=== PATIENT | male | born 1980 | race African-American/Black ===

== ENCOUNTER 2017-03-20 09:34 | Inpatient (IN) | payer BC, SELFPAY ==
[~2017-03-20 09:34] MED LIST: ISOVUE-370 76%-LOCM 1 ML ONE
[2017-03-20] MEDS ORDERED: Nitroglycerin 0.4 MG TAB (25 Tab Bottle) ONE (09:43)
--- NOTE | 2017-03-20 09:54 | RAD ---
SINGLE VIEW OF CHEST: Date: 03/20/17 COMPARISON: None. HISTORY: Chest pain. FINDINGS: Single view of the chest shows a normal sized cardiomediastinal silhouette. There is no evidence of consolidation, mass, or pleural effusion. The bones are unremarkable. IMPRESSION: No evidence of acute cardiopulmonary disease. POS: [facility]
[2017-03-20 10:01] LABS: #Eosinphils 0.1 thou/uL (0.0-0.7); #Monocytes 0.6 thou/uL (0.11-0.59); #Neutrophils 3.5 thou/uL (1.40-6.50); %Basophils 0.7 % (0.0-1.0); %Lymphocytes 40.4 % (21.0-51.0); %Monocytes 8.7 % (0.0-10.0); Hematocrit 52.1 % (42.0-52.0); Mean Platelet Volume 6.6 fL (7.4-10.4); White Blood Cell (WBC) Count 7.3 thou/uL (4.8-10.8)
[2017-03-20 10:16] LABS: Anion Gap 9 mmol/L (-14-95); Lactate 2.67 mmol/L (0.50-2.20); POC Est. GFR-MDRD-African-Amer Greater than 60 (2-60); POC Estimated GFR-MDRD 57 (2-60); T. Carbon Dioxide 26.5 mmol/L (1.0-85.0); vO2 Saturation-calc 15.1 % (0.0-100.0)
[2017-03-20 10:19] LABS: ALT (SGPT) 34 U/L (8-55); AST (SGOT) 26 U/L (5-34); Alkaline Phosphatase 175 U/L (40-150); Anion Gap 17 mmol/L (10-20); BUN (Urea Nitrogen) 8 mg/dL (8.9-20.6); Bilirubin, Total 0.6 mg/dL (0.2-1.2); CK (CPK) 191 U/L (30-200); Calc. Creatinine Clearance 0 mL/min (70-130); Calcium 8.8 mg/dL (7.8-10.44); Carbon Dioxide 21 mmol/L (22-29); Chloride 103 mmol/L (98-107); Estimated GFR-MDRD 64; Globulin 4.1 g/dL (2.4-3.5); Lipase 25 U/L (8-78)
[2017-03-20 10:26] LABS: PTT 26.8 SEC (22.9-36.1); Prothrombin Time 14.5 SEC (12.0-14.7)
[2017-03-20 10:27] LABS: Troponin I 0.116 ng/mL (< 0.028)
[2017-03-20 10:37] LABS: Neutrophil 44 % (42-75)
[2017-03-20 10:38] LABS: Band 1 % (5-11)
[2017-03-20] MEDS ORDERED: Enoxaparin Sodium 100 MG/ML SYRINGE ONE (11:04)
--- NOTE | 2017-03-20 11:14 | CT ---
CT OF THE BRAIN WITHOUT CONTRAST: Date: 03/20/17 COMPARISON: None. HISTORY: Shortness of breath and chest pain. Headache. Syncope. TECHNIQUE: Multiple contiguous axial images were obtained in a CT of the brain without contrast. FINDINGS: The brain is normal in morphology and attenuation without focal lesions or confluent areas of infarc tion. There is no evidence of hydrocephalus, intracranial hemorrhage, or extra-axial fluid collectio n. The calvarium and overlying soft tissues are unremarkable. The visualized paranasal sinuses and mast oid air cells are well aerated. IMPRESSION: No evidence of acute intracranial abnormality. POS: [facility]
--- NOTE | 2017-03-20 11:41 | CT ---
CT PULMONARY ANGIOGRAM WITH IV CONTRAST AND 3D POSTPROCESSING: Date: 03/20/17 HISTORY: 36-year-old male with syncope, chest pain. FINDINGS: There is good contrast opacification of the pulmonary arterial vasculature with extensive filling de fects in the main pulmonary arteries and their branches bilaterally consistent with pulmonary emboli sm. There is enlargement of the right ventricle and deviation of the interventricular septum towards the left ventricle. No pleural or pericardial effusions are seen. The thoracic aorta is opacified w ithout aneurysm or dissection. No pneumothoraces are noted. No lobar consolidation or lung masses se en. No acute osseous abnormalities are noted. IMPRESSION: Bilateral pulmonary embolism with right ventricular strain. Findings discussed over the telephone with ER physician, Dr. Quentin Patrick, at 1102 hours. CODE CR. POS: [facility]
--- NOTE | 2017-03-20 12:00 | ULT ---
BILATERAL LOWER EXTREMITY VENOUS DOPPLER ULTRASOUND: Date: 03/20/17 HISTORY: Recently diagnosed massive bilateral pulmonary embolism. TECHNIQUE: Hollingsworth scale ultrasound with color flow and spectral Doppler imaging of the deep venous systems of the lower extremities was performed bilaterally. FINDINGS: There is good flow, compression, and augmentation noted in the common femoral, femoral, deep femoral , popliteal, posterior tibial, and greater saphenous veins on either side. IMPRESSION: No evidence of deep venous thrombosis in either lower extremity. POS: [facility]
[2017-03-20 12:02] LABS: Bilirubin Negative (Negative); Blood, Urine Trace (Negative); Glucose, Urine (Dipstick) Negative (Negative); Ketone, Urine Negative (Negative); Nitrite Negative (Negative); Protein, Urine (Dipstick) Trace mg/dL (Neg-Trace); Urobilinogen 0.2 mg/dL (0.2-1.0)
[2017-03-20 12:16] LABS: Bacteria/HPF None Seen HPF (None Seen); Hyaline Casts/LPF NONE SEEN LPF (0-3 Hyaline); RBC/HPF 0-3 HPF (0-3); Squamous Epithelial 0-3 HPF (0-3); WBC/HPF 0-3 HPF (0-3)
[2017-03-20] MEDS ORDERED: Acetaminophen 325 MG TAB PO PRN ×2 (12:48→12:50)
[2017-03-20] MEDS ORDERED: Ondansetron ODT 4 MG TAB PO PRN ×2 (12:48→12:50)
[2017-03-20] MEDS ORDERED: Ondansetron HCl/PF 4 MG/2 ML Vial IVP PRN ×2 (12:48→12:50)
[2017-03-20] MEDS ORDERED: Nitroglycerin 0.4 MG TAB (25 Tab Bottle) PO PRN (12:48)
[2017-03-20] MEDS ORDERED: Milk Of Magnesia 30 ML UDCUP PO PRN (12:50)
[2017-03-20] MEDS ORDERED: Senokot 8.6 MG TAB PO PRN (12:50)
[2017-03-20] MEDS ORDERED: Bisacodyl 10 MG SUPP PR PRN (12:50)
[2017-03-20 12:57] LABS: PTT 31.7 SEC (22.9-36.1)
[2017-03-20] MEDS ORDERED: Sodium Chloride 0.9% 1,000 ML IV SCH (13:00)
[2017-03-20] MEDS: Sodium Chloride 0.9% 1,000 ML IV SCH (13:19)
[2017-03-20 13:32] LABS: Troponin I 0.346 ng/mL (< 0.028)
--- NOTE | 2017-03-20 15:33 | CON ---
DATE OF CONSULTATION: 03/20/2017 CARDIOLOGY CONSULTATION REASON FOR CONSULTATION: Elevated troponins. HISTORY OF PRESENT ILLNESS: Mr. Rojas is a 36-year-old -Swiss gentleman who comes to [facility] for syncope and chest pain. He was at work and has 2 episodes of syncope today. Jonatan albright, EMS was called after the second one. When they got to him, he was diaphoretic, O2 saturation w as at 91%. He was started on oxygen supplementation. Aspirin was given and brought to the hospital for this. In the ER, he had a CT of the chest and was found to have large bilateral pulmonary embo lisms with right ventricular strain. During his initial evaluation, troponins were drawn and they a re elevated, so Cardiology was consulted for this. PAST MEDICAL HISTORY: None. PAST SURGICAL HISTORY: None. SOCIAL HISTORY: Occasional alcohol use, no tobacco or drugs. FAMILY HISTORY: Noncontributory. REVIEW OF SYSTEMS: Twelve point review of systems was done and it is all negative as stated in the history of present illness. PHYSICAL EXAMINATION: VITAL SIGNS: Temperature 99.1, pulse 128, respiratory rate 26, satting 99% on 2 liters, blood press ure 122/88. GENERAL: Awake, alert, oriented x3, in no distress. HEENT: Normocephalic, atraumatic. NECK: Supple. No JVD. LUNGS: Clear to auscultation. CARDIOVASCULAR: S1 and S2, tachycardic in the 120s. ABDOMEN: Soft, positive bowel sounds. EXTREMITIES: Trace edema on the right leg. SKIN: Warm and dry. LABORATORY DATA: Laboratory work was reviewed. Hematology was unremarkable. Coags were reviewed. ABG was reviewed. Chemistries were reviewed. Potassium was 3.3, creatinine was 1.3, troponin was 0.1 and then 0.3. BNP was 225. UA was negative. Cardiolipin IgG, IgA, and IgM are pending and [facility] er hypercoagulable testing is pending. IMAGIN. EKG is reviewed, sinus tachycardia. 2. Echocardiogram showed normal LV systolic function with dilated right ventricle with reduced func tion consistent with his history of recent acute pulmonary embolism. ASSESSMENT AND PLAN: 1. Submassive pulmonary embolus: Agree with full anticoagulation. Would switch to oral therapies now with rather Xarelto or Eliquis. Would anticoagulate for a minimum of 3 months. At this point, the only thing that may be consistent with him getting a blood clot is he states he fell off his hor se about 2 weeks ago and he might remember that the horse fell on his right leg. The leg is really not hurting at all or has not been swelling in the last few days. 2. His elevated troponin is most likely related to his acute pulmonary embolism. No coronary inter vention is planned at this time. 3. Right ventricular dysfunction: Related to pulmonary embolism. Continue PE treatment. Thank you for letting us to participate in the care of your patient. We will follow.
[2017-03-20] MEDS ORDERED: Potassium Chloride 20 MEQ TAB PO SCH (19:30)
--- NOTE | 2017-03-20 19:45 | HP ---
DATE OF ADMISSION: 03/20/2017 PRIMARY CARE PHYSICIAN: Malika. CHIEF COMPLAINT: Syncopal episode. HISTORY OF PRESENT ILLNESS: The patient is a 36-year-old male with no significant past medical history, who was brought in by EMS after an episode of syncope. The patient is currently in severe respiratory distress and not much information is available from the patient. History obtained from the family at the bedside. Over the last two days, the patient has been having shortness of breath on mild- to-moderate exertion. Today morning, the patient had a syncopal episode while he was trying to get out of his car. He lost consciousness for a few seconds after which he was back to normal. He again passed out in front of his car. EMS was called by his coworker. He was extremely diaphoretic along with chest discomfort. The patient received aspirin by EMS. He fell on the back of the head and was complaining of some headache on the backside earlier today. In the emergency room, his initial vital signs showed temperature of 98.2 with pulse rate of 142, blood pressure of 111/87, respiration of 18 with O2 saturation of 100% on 4 liter nasal cannula. He received full dose anticoagulation for submassive pulmonary embolism on the CT. A stat echocardiogram and Doppler have been ordered. PAST MEDICAL HISTORY: Reviewed with the patient and none. PAST SURGICAL HISTORY: Reviewed with the patient and none. ALLERGIES: No known drug allergies. SOCIAL HISTORY: The patient chews tobacco, drinks alcohol socially, no drug use. FAMILY HISTORY: No history of blood clots in his family. Heart disease runs in his family. REVIEW OF SYSTEMS: The following complete review of systems was negative, unless otherwise mentioned in the HPI or below: Constitutional: Weight loss or gain, ability to conduct usual activities. Skin: Rash, itching. Eyes: Double vision, pain. ENT/Mouth: Nose bleeding, neck stiffness, pain, tenderness. Cardiovascular: Palpitations, dyspnea on exertion, orthopnea. Respiratory: Shortness of breath, wheezing, cough, hemoptysis, fever or night sweats. Gastrointestinal: Poor appetite, abdominal pain, heartburn, nausea, vomiting, constipation, or diarrhea. Genitourinary: Urgency, frequency, dysuria, nocturia. Musculoskeletal: Pain, swelling. Neurologic/Psychiatric: Anxiety, depression. Allergy/Immunologic: Skin rash, bleeding tendency. ALLERGIES: No known drug allergies. CURRENT HOME MEDICATIONS: Reviewed with the patient and none. PHYSICAL EXAMINATION: GENERAL: A 36-year-old male in [id number] respiratory distress. HEENT: Head, atraumatic and normocephalic. Sclerae are anicteric. Moist mucous membranes. No oral lesion. NECK: Supple, no JVD, no carotid bruit. LUNGS: Showed scattered rhonchi. There was accessory muscle use. No wheezing or rales appreciated. HEART: S1, S2 present. Regular, tachycardic. No significant rubs, gallops or murmurs appreciated. ABDOMEN: Soft and obese, bowel sounds present. EXTREMITIES: No edema or calf tenderness. SKIN: Warm and dry. LYMPH NODES: No palpable lymph nodes in the neck. PERIPHERAL VASCULAR: Radial pulses palpable bilaterally. MUSCULOSKELETAL: No joint swelling or tenderness. LABORATORY AND X-RAY FINDINGS: 1. CBC showed WBC 7.3 with hemoglobin 16.2 and platelet 267. 2. VBG showed pH 7.31 with pCO2 of 49.6, pO2 of 14.4 with bicarbonate 25. 3. Chemistries showed sodium 138 with potassium 3.2, chloride 103, bicarbonate 21, BUN of 8, and creatinine 1.48. 4. Troponin initially was 0.116. 5. BNP 225. 5. Thrombosis panel has been sent. CT scan of the brain was negative. EKG by my review showed S1, Q3, T3 pattern. 6. CT angiogram of the chest by my review was consistent with extensive bilateral pulmonary embolism. IMPRESSION AND PLAN: 1. Extensive bilateral pulmonary embolism, etiology unclear. The patient denies any recent immobilization travel. Thrombosis panel has been sent. We will continue full dose anticoagulation. We will consult Critical Care. 2. Abnormal cardiac enzymes secondary to extensive bilateral pulmonary embolism. 3. Stat echocardiogram has been ordered. 4. Obesity with a BMI of 37. Lifestyle modification emphasized. 5. Hypokalemia. We will replace. 6. Dehydration with acute kidney injury/hypokalemia. We will monitor renal function on the daily basis. 7. Tobacco dependence. Lifestyle modification emphasized. 8. Family history of heart disease. 9. Right ventricular strain secondary to extensive bilateral pulmonary embolism. Plan of care was discussed with the patient and the family at the bedside. LEVEL OF RISK: High. CONDITION OF THE PATIENT: Critical. [facility]
[2017-03-20] MEDS: Famotidine 20 MG TAB PO SCH (22:30)
[2017-03-20] MEDS: Docusate 100 MG CAP PO SCH (22:30)
[2017-03-20] MEDS: Enoxaparin Sodium 100 MG/ML SYRINGE SC SCH (22:31)
--- NOTE | 2017-03-20 23:47 | CON ---
DATE OF CONSULTATION: 03/20/2017 HISTORY OF PRESENT ILLNESS: Fito Rojas is a 5 feet 6 inches, 229 pounds, BMI of 37, obese, Afr ican-[place] gentleman who apparently was paying his mortgage and apparently fell in the parking lo [employer]. He does not recollect the event. Denies any chest pain, denies any shortness of breath prior to that he states several weeks ago, he had some calf pain on the right side. He is healthy. He does smoke, does not drink, does not use any drugs. Takes no medication. PAST SURGICAL HISTORY: None. CURRENT MEDICATIONS: None. FAMILY HISTORY: Unremarkable. 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 He says he is very active all the time. REVIEW OF SYSTEMS: Otherwise, 10-point negative. PHYSICAL EXAMINATION: VITAL SIGNS: He is tachycardic at 120-130, blood pressure 120/80, respiratory rate 18. GENERAL: He is awake, alert, and responsive. CHEST: Reveals decreased breath sounds without any wheezing. CARDIAC: Sinus tachycardia. ABDOMEN: Soft. LABORATORY AND X-RAY FINDINGS: Chest x-ray was normal. His CT brain was negative. Ultrasound of b oth legs was negative. CT chest angio shows bilateral pulmonary emboli with the right ventricular s train. His lab otherwise shows white count 7000, hemoglobin and hematocrit 16 and 42, platelet count 267. Troponin is slightly elevated. IMPRESSION: 1. Bilateral pulmonary emboli with negative ultrasound of both legs. 2. Status post syncope with negative CT of the brain. 3. No prior medical problems. 4. Obesity, possibly sleep apnea. PLAN: Lovenox 1 mg/kg is initiated. Otherwise, continue hydration. He is going to require long-term anticoagulation at least for a year . Keep him observed in the ICU. We will follow.
[2017-03-21 04:45] LABS: Hematocrit 46.9 % (42.0-52.0)
[2017-03-21 05:03] LABS: Anion Gap 13 mmol/L (10-20); BUN (Urea Nitrogen) 6 mg/dL (8.9-20.6); BUN/Creatinine Ratio 4.92; Calc. Creatinine Clearance 121 mL/min (70-130); Calcium 8.2 mg/dL (7.8-10.44); Carbon Dioxide 23 mmol/L (22-29); Chloride 107 mmol/L (98-107); Estimated GFR-MDRD 80; Magnesium 1.7 mg/dL (1.6-2.6)
[2017-03-21] MEDS: Sodium Chloride 0.9% 1,000 ML IV SCH (08:42)
[2017-03-21] MEDS: Enoxaparin Sodium 100 MG/ML SYRINGE SC SCH ×2 (09:03→21:05)
[2017-03-21] MEDS: Famotidine 20 MG TAB PO SCH ×2 (09:04→21:04)
[2017-03-21] MEDS: Docusate 100 MG CAP PO SCH ×2 (09:05→21:04)
--- NOTE | 2017-03-21 11:01 | PDOC.PN ---
- Subjective Encounter Start Date: 03/21/17 Encounter Start Time: 10:30 Patient seen and examined. No new complaints. No overnight events. Feels better - Objective Resuscitation Status: Resuscitation Status FULL:Full Resuscitation MAR Reviewed: Yes Vital Signs & Weight: Vital Signs (12 hours) Temp Pulse Resp Pulse Ox 03/21/17 08:00 99.4 F 112 H 25 H 97 03/21/17 04:00 99.0 F 03/21/17 00:00 98.6 F Weight Weight 231 lb 11.293 oz Most Recent Monitor Data Heart Rate from ECG 123 NIBP 124/85 NIBP BP-Mean 96 Respiration from ECG 19 SpO2 97 I&O: 03/20/17 03/21/17 03/22/17 06:59 06:59 06:59 Intake Total 2878 300 Output Total 1880 0 Balance 998 300 Result Diagrams: 03/21/17 04:07 03/21/17 04:07 Phys Exam - Physical Examination Constitutional: NAD Respiratory: no wheezing, no rhonchi Cardiovascular: RRR, no rub Gastrointestinal: soft, non-tender, positive bowel sounds Musculoskeletal: no edema Neurological: non-focal, moves all 4 limbs Dx/Plan - Plan IMPRESSION AND PLAN: 1. Extensive bilateral pulmonary embolism. Thrombosis panel has been sent. on Lovenox 2. Acute kidney injury/dehydration. improving 3. Right ventricular strain with abnormal cardiac enzymes secondary to extensive bilateral pulmonary embolism. 4. Obesity with a BMI of 37. Lifestyle modification emphasized. 5. Hypokalemia. corrected 6. Family history of heart disease. 7. Tobacco dependence. PLAN: * Cont Lovenox * Cardio/Pulm following * Change activity to bedrest with bedside com. * Transfer to tele * DC IVF Review of Systems - Review of Systems Gastrointestinal: negative: Nausea, Vomiting, Abdominal Pain, Diarrhea, Constipation, Melena, Hematochezia, Other Genitourinary: negative: Dysuria, Frequency, Incontinence, Hematuria, Retention , Other - Medications/Allergies Allergies/Adverse Reactions: Allergies Allergy/AdvReac Type Severity Reaction Status Date / Time No Known Allergies Allergy Verified 03/20/17 17:24 Medications: Current Medications Acetaminophen (Tylenol) 650 mg PO Q4H PRN PRN Reason: Headache/Fever or Pain Albuterol/Ipratropium (Duoneb) 3 ml NEB [id number] PRN PRN Reason: SOB &/or Wheezing Bisacodyl (Dulcolax) 10 mg MI Q24H PRN PRN Reason: Constipation Docusate Sodium (Colace) 100 mg PO BID [facility] Last Admin: 03/21/17 09:05 Dose: Not Given Enoxaparin Sodium (Lovenox) 100 mg SC 0900,2100 [facility] Last Admin: 03/21/17 09:03 Dose: 100 mg Famotidine (Pepcid) 20 mg PO BID [facility] Last Admin: 03/21/17 09:04 Dose: 20 mg Sodium Chloride (Normal Saline 0.9%) 1,000 mls @ 50 mls/hr IV .Q20H [facility] Last Admin: 03/21/17 08:42 Dose: Not Given Magnesium Hydroxide (Milk Of Magnesium) 30 ml PO DAILYPRN PRN PRN Reason: Constipation Nitroglycerin (Nitrostat) 0.4 mg PO Q5MIN PRN PRN Reason: Chest Pain Ondansetron HCl (Zofran Odt) 4 mg PO Q6H PRN PRN Reason: Nausea/Vomiting Ondansetron HCl (Zofran) 4 mg IVP Q6H PRN PRN Reason: Nausea/Vomiting Senna (Senokot) 2 tab PO HSPRN PRN PRN Reason: Constipation Sodium Chloride (Flush - Normal Saline) 10 ml IVF Q12HR [facility] Last Admin: 03/21/17 09:05 Dose: 10 ml Sodium Chloride (Flush - Normal Saline) 10 ml IVF PRN PRN PRN Reason: Saline Flush
--- NOTE | 2017-03-21 11:50 | PDOC.CTH ---
Cardiology Progress Note - Subjective He feels better. No chest pain, breathing has improved. - Objective Vital Signs Temp Pulse Resp Pulse Ox 03/21/17 08:00 99.4 F 112 H 25 H 97 03/21/17 07:19 96 03/21/17 04:00 99.0 F 03/21/17 00:00 98.6 F Weight 231 lb 11.293 oz 03/20/17 03/21/17 03/22/17 06:59 06:59 06:59 Intake Total 2878 350 Output Total 1880 500 Balance 998 -150 - Physical Examination General/Neuro: alert & oriented x3, NAD Neck: no JVD present Lungs: CTA, unlabored respirations Heart: RRR, other: (Tachycardic) Abdomen: NT/ND Extremities: + edema B (trace) - Telemetry Telemetry Rhythm: S tach HR 120's. - Labs Result Diagrams: 03/21/17 04:07 03/21/17 04:07 Troponin/CKMB CK-MB (CK-2) 1.6 ng/mL (0-6.6) 03/21/17 04:07 Troponin I 0.130 ng/mL (< 0.028) H 03/21/17 04:07 - Assessment/Plan 1. Acute submassive PE 2. Syncope, secondary to PE 3. Acute RV strain secondary to PE. PLAN: - Continue full anticoagulation. may transition to oral at any point now, will defer to pulmonary - May transfer to telemetry floor.
--- NOTE | 2017-03-21 15:13 | PRG ---
DATE OF SERVICE: 03/21/2017 SUBJECTIVE: Bob this morning denies any pain or shortness of breath. PHYSICAL EXAMINATION: VITAL SIGNS: Pulse is 109, blood pressure is 130/80, saturations 96% on room air, respirations 18. CHEST: No wheezing. CARDIAC: Normal S1, S2. No gallops. ABDOMEN: Soft. LABORATORY DATA: Troponin is 0.13, decreased. His echo shows RV and RA dilatation. Surprisingly, his venograms of both legs were negative. IMPRESSION: 1. Pulmonary embolism with significant right ventricular strain with leg edema and deep venous thro mbosis. 2. Obesity. PLAN: Continue PT. Continue Lovenox. He needs at least 1 year of anticoagulation. I will keep kassy russo on Lovenox at least until Thursday and day after switch him over to Eliquis. We will follow.
[2017-03-22 05:43] LABS: Hematocrit 45.3 % (42.0-52.0)
[2017-03-22 05:59] LABS: Anion Gap 10 mmol/L (10-20); BUN (Urea Nitrogen) 6 mg/dL (8.9-20.6); BUN/Creatinine Ratio 4.88; Calc. Creatinine Clearance 121 mL/min (70-130); Calcium 8.6 mg/dL (7.8-10.44); Carbon Dioxide 28 mmol/L (22-29); Chloride 104 mmol/L (98-107); Estimated GFR-MDRD 80; Magnesium 1.7 mg/dL (1.6-2.6)
--- NOTE | 2017-03-22 08:07 | PDOC.PN ---
- Subjective Encounter Start Date: 03/22/17 Encounter Start Time: 07:30 Subjective: No new complaint. -: Feels better. -: On O2 via NC. - Objective Resuscitation Status: Resuscitation Status FULL:Full Resuscitation Vital Signs & Weight: Weight Weight 232 lb Most Recent Monitor Data Heart Rate from ECG 115 NIBP 134/89 NIBP BP-Mean 112 Respiration from ECG 29 SpO2 98 I&O: 03/21/17 03/22/17 03/23/17 06:59 06:59 06:59 Intake Total 2878 2040 Output Total 1880 1650 Balance 998 390 Result Diagrams: 03/22/17 05:08 03/22/17 05:08 Phys Exam - Physical Examination Constitutional: NAD (On O2 via NC.) HEENT: sclera anicteric Neck: no JVD Respiratory: clear to auscultation bilateral Cardiovascular: RRR Gastrointestinal: soft, non-tender, no distention Musculoskeletal: no edema Neurological: moves all 4 limbs Psychiatric: A&O x 3 Dx/Plan (1) Bilateral pulmonary embolism Code(s): I26.99 - OTHER PULMONARY EMBOLISM WITHOUT ACUTE COR PULMONALE Status : Acute Plan: Continue lovenox. To start Eliquis Vs Coumadin. (2) JEOVANY (acute kidney injury) Code(s): N17.9 - ACUTE KIDNEY FAILURE, UNSPECIFIED Status: Acute Plan: Renal function unchanged from yesterday. Comment: f/u chemistry. (3) Tobacco abuse Code(s): Z72.0 - TOBACCO USE Status: Acute Comment: counseled. - Plan -: To initiate oral anticoagulant, Eliquis Vs Coumadin. -: f/u anticardiolipid, protein s...etc. * .
[2017-03-22] MEDS: Docusate 100 MG CAP PO SCH ×2 (08:09→20:26)
[2017-03-22] MEDS: Famotidine 20 MG TAB PO SCH ×2 (08:09→20:27)
[2017-03-22] MEDS: Enoxaparin Sodium 100 MG/ML SYRINGE SC SCH ×2 (08:10→20:28)
--- NOTE | 2017-03-22 15:38 | PDOC.CTH ---
Cardiology Progress Note - Subjective He is doing better every day. No syncope. - Objective Vital Signs Temp Pulse Pulse Pulse Resp BP BP 03/22/17 11:29 98.9 F 118 H 20 03/22/17 10:08 120 H 115 H 143/86 H 139/91 H 03/22/17 08:00 99.6 F 113 H 18 BP Pulse Ox Pulse Ox Pulse Ox 03/22/17 11:29 146/95 H 96 03/22/17 10:08 99 94 L 03/22/17 08:00 96 Weight 232 lb 03/21/17 03/22/17 03/23/17 06:59 06:59 06:59 Intake Total 2878 2040 Output Total 1880 1650 Balance 998 390 - Physical Examination General/Neuro: alert & oriented x3, NAD Neck: no JVD present Lungs: unlabored respirations Heart: RRR, other: (Tachycardic) Abdomen: NT/ND Extremities: other: (no edema.) - Telemetry Telemetry Rhythm: S tach. - Labs Result Diagrams: 03/22/17 05:08 03/22/17 05:08 Troponin/CKMB CK-MB (CK-2) 1.6 ng/mL (0-6.6) 03/21/17 04:07 Troponin I 0.130 ng/mL (< 0.028) H 03/21/17 04:07 - Assessment/Plan 1. Acute submassive PE 2. Syncope, secondary to PE 3. Acute RV strain secondary to PE. PLAN: - Will switch to Xarelto.
--- NOTE | 2017-03-22 17:25 | PRG ---
DATE OF SERVICE: 03/22/2017 SUBJECTIVE: Mr. Rojas is 5 feet 6, BMI 37. No chest pain or shortness of breath. OBJECTIVE: VITAL SIGNS: Sats are 97% on 3 liters, respirations 18, pulse 130, temperature . CHEST: Chest reveals decreased breath sounds, no wheezing. CARDIAC: Normal S1, S2, no gallops. LABORATORY DATA: H\T\H stable, platelet count normal. Creatinine 1.23. IMPRESSION: 1. Massive pulmonary emboli. 2. Negative ultrasound of the leg. Etiology unclear. PLAN: I will continue Lovenox for another 24-48 hours, then switch him over to Eliquis. Anticoagul ation at least for at least a year. Encouraged to lose weight.
[2017-03-23 05:44] LABS: Anion Gap 13 mmol/L (10-20); BUN (Urea Nitrogen) 8 mg/dL (8.9-20.6); BUN/Creatinine Ratio 6.06; Calc. Creatinine Clearance 113 mL/min (70-130); Calcium 8.4 mg/dL (7.8-10.44); Carbon Dioxide 24 mmol/L (22-29); Chloride 104 mmol/L (98-107); Estimated GFR-MDRD 73; Phosphorus 3.1 mg/dL (2.3-4.7)
[2017-03-23 06:30] VITALS: BMI 36.8
[2017-03-23] MEDS: Docusate 100 MG CAP PO SCH (08:27)
[2017-03-23] MEDS: Famotidine 20 MG TAB PO SCH (08:27)
[2017-03-23] MEDS ORDERED: Rivaroxaban 15 MG TAB PO SCH (09:00)
--- NOTE | 2017-03-23 09:26 | PRG ---
DATE OF SERVICE: 03/23/2017 The patient is doing well, has no complaints. PHYSICAL EXAMINATION: VITAL SIGNS: His O2 sat 97% room air, temperature 98.4, pulse 99, respirations 22, blood pressure 1 42/99. HEENT: Unremarkable. NECK: No JVD. CHEST: Clear to auscultation without wheezing. CARDIAC: S1 and S2 regular. ABDOMEN: Soft. EXTREMITIES: No edema. LABORATORY DATA: Hematocrit 46, platelet count 278. Sodium 138, BUN 8, creatinine 1.2, glucose 131 . ASSESSMENT: Pulmonary embolism. PLAN: He is to be anticoagulated with the Xarelto for at least 6 months. I have no issue with him being discharged today. He can follow up with either Dr. Galvez or his primary care doctor.
[2017-03-23] MEDS ORDERED: Potassium Chloride 20 MEQ TAB PO SCH (09:45)
--- NOTE | 2017-03-23 10:02 | PDOC.PN ---
- Subjective Encounter Start Date: 03/23/17 Encounter Start Time: 10:00 Patient seen and examined. No new complaints. No overnight events. feels good and no sob or dizziness. wants to go home. - Objective Resuscitation Status: Resuscitation Status FULL:Full Resuscitation MAR Reviewed: Yes Vital Signs & Weight: Vital Signs (12 hours) Temp Pulse Resp BP Pulse Ox 03/23/17 08:22 98.4 F 99 22 H 142/99 H 97 Weight Weight 228 lb 3.2 oz Most Recent Monitor Data Heart Rate from ECG 115 NIBP 134/89 NIBP BP-Mean 112 Respiration from ECG 29 SpO2 98 I&O: 03/22/17 03/23/17 03/24/17 06:59 06:59 06:59 Intake Total 2040 1330 Output Total 1650 2040 Balance 390 -710 Result Diagrams: 03/23/17 04:37 03/23/17 04:37 Phys Exam - Physical Examination Constitutional: NAD HEENT: sclera anicteric Neck: supple Respiratory: no wheezing, no rales Cardiovascular: RRR Gastrointestinal: soft Musculoskeletal: no edema Neurological: non-focal, moves all 4 limbs Psychiatric: normal affect, A&O x 3 Skin: no rash Dx/Plan (1) Hypokalemia Code(s): E87.6 - HYPOKALEMIA Status: Acute (2) JEOVANY (acute kidney injury) Code(s): N17.9 - ACUTE KIDNEY FAILURE, UNSPECIFIED Status: Acute Comment: f/ u chemistry. (3) Bilateral pulmonary embolism Code(s): I26.99 - OTHER PULMONARY EMBOLISM WITHOUT ACUTE COR PULMONALE Status : Acute - Plan * . DC home today. Xarelto 15 mg po bid for 3 weeks,then 20 mg po daily for 6 months. f/u with pulm and PCP in 1-2 weeks. Replete K today.
[2017-03-23 10:53] LABS: Protein C Activity 95 % (78-152)
[2017-03-23 11:33] VITALS: BP 151/88; TEMP 98.5
--- NOTE | 2017-03-23 13:02 | PDOC.CTH ---
Cardiology Progress Note - Subjective He is doing well. - Objective Vital Signs Temp Pulse Resp BP BP Pulse Ox 03/23/17 11:31 98.5 F 114 H 18 151/88 H 97 03/23/17 08:27 98.4 F 99 22 H 97 03/23/17 08:22 98.4 F 99 22 H 142/99 H 97 Weight 228 lb 3.2 oz 03/22/17 03/23/17 03/24/17 06:59 06:59 06:59 Intake Total 2040 1330 Output Total 1650 2040 Balance 390 -710 - Physical Examination General/Neuro: alert & oriented x3, NAD Neck: no JVD present Lungs: unlabored respirations Heart: RRR Abdomen: NT/ND Extremities: other: (no edema.) - Telemetry Telemetry Rhythm: S tach - Labs Result Diagrams: 03/23/17 04:37 03/23/17 04:37 Troponin/CKMB CK-MB (CK-2) 1.6 ng/mL (0-6.6) 03/21/17 04:07 Troponin I 0.130 ng/mL (< 0.028) H 03/21/17 04:07 - Assessment/Plan 1. Acute submassive PE 2. Syncope, secondary to PE 3. Acute RV strain secondary to PE. PLAN: - On Xarelto. - October discharge home. - Follow up in 1 month in clinic.
--- NOTE | 2017-03-23 14:33 | DIS ---
DISCHARGE DIAGNOSES: 1. Bilateral extensive pulmonary embolus. 2. Acute kidney injury. 3. Hypokalemia. CONSULTATIONS: 1. Dr. Villa from Cardiology. 2. Dr. Harding from Pulmonary Medicine and Dr. Galvez.. HOSPITAL COURSE: This is a 36-year-old -[place] male who was admitted to the hospital with dizziness and syncopal-like episode and was found to have per CT PE protocol extensive bilateral pul monary embolism and he was treated with anticoagulants and is being discharged on Xarelto with close followup. Thrombosis panel has been sent and is pending. His cardiac enzymes were also abnormal and he had a biventricular dilatation. Cardiology was also following and agree with the anticoagulation for now. PROCEDURES: He had an echocardiogram which showed EF of 60-65%, grade I diastolic dysfunction and s everely dilated right ventricle, elevated pulmonary artery pressure at 52. CONDITION ON DISCHARGE: Fair. DISCHARGE MEDICATIONS: Xarelto 15 mg p.o. b.i.d. for 20 more days for a total of 21 days and then 2 0 mg daily for a total of 6 months. DISCHARGE FOLLOWUP: With primary care physician in 1 week and follow up with Dr. Galvez in 1-2 weeks. The patient's blood pressure was slightly elevated here, but will be monitored as outpatient. The p atient was also given a work note. The patient was slightly hypokalemic the day of discharge and po tassium was replaced. Please see H\T\P and progress notes for more details. I did spend more than 35 minutes coordinating the discharge care of this patient.
[2017-03-25 15:24] LABS: Activated Protein C Resistance 2.9 ratio (.)
== END 2017-03-23 12:45 | disposition home or self-care (01) | DRG 176 ==
LOC: ERS 09:34 → CCU 11:10 → 2NO 03-21 13:27
PROVIDERS: ADMIT Internal Medicine; ATTEND Internal Medicine
DX: I26.99 Other pulmonary embolism without acute cor pulmonale (principal); N17.9 Acute kidney failure, unspecified; E86.0 Dehydration; I82.409 Acute embolism and thrombosis of unspecified deep veins of unspecified lower extremity; F17.220 Nicotine dependence, chewing tobacco, uncomplicated; E66.9 Obesity, unspecified; Z68.37 Body mass index [BMI] 37.0-37.9, adult; E87.6 Hypokalemia
CPT/HCPCS: 36415; 70450; 71010; 71275; 80053; 80069; 81003; 81015; 81240; 82330; 82550; 82553; 82803; 83090; 83605; 83690; 83735; 83880; 84484; 85014; 85018; 85025; 85049; 85240; 85300; 85303; 85305; 85307; 85379; 85598; 85610; 85730; 93005; 93306; 93970; 94760; 96360; 96372; 99292; A4216; G8978-GP-CI; G8979-GP-CI; G8980-GP-CI; J1650

== ENCOUNTER 2017-07-16 12:44 | Outpatient (CLI) | payer BC ==
--- NOTE | 2017-07-16 12:56 | RAD ---
TWO VIEW CHEST: History: Dyspnea. FINDINGS: Lungs are clear. Heart and mediastinum unremarkable. Osseous structures are unremarkable. IMPRESSION: No acute finding. POS: [facility]
== END 2017-07-16 12:45 | disposition home or self-care (01) ==
LOC: RAD 12:44
PROVIDERS: ATTEND Internal Medicine Pulmonary Disease
DX: R06.00 Dyspnea, unspecified (principal)
CPT/HCPCS: 71046

== ENCOUNTER 2017-08-05 11:30 | Outpatient (CLI) | payer BC ==
[2017-08-05] MEDS ORDERED: Iopamidol 370 76% 100 ML VIAL ONE (13:13)
== END 2017-08-05 11:31 | disposition home or self-care (01) ==
LOC: BICCT 11:30
PROVIDERS: ATTEND Internal Medicine Pulmonary Disease
DX: Z09 Encounter for follow-up examination after completed treatment for conditions other than malignant neoplasm (principal); Z86.711 Personal history of pulmonary embolism
CPT/HCPCS: 71275

== ENCOUNTER 2020-01-11 09:13 | Inpatient (IN) | payer BC, OTHER ==
[~2020-01-11 09:13] MED LIST changes: +EPINEPHrine 1 MG/10 ML Abboject SYRINGE ONE; -ISOVUE-370 76%-LOCM 1 ML ONE; +Sodium Bicarb 50 MEQ/50 ML Abboject 8.4% SYRINGE ONE
[2020-01-11] MEDS ORDERED: EPINEPHrine 1 MG/ML AMP ONE (09:19)
[2020-01-11] MEDS ORDERED: EPINEPHrine 1 MG/10 ML Abboject SYRINGE ONE (09:19)
[2020-01-11] MEDS ORDERED: Iopamidol-370 76% 500 ML 1 ML ONE (09:30)
[2020-01-11 09:50] LABS: #Basophils 0.1 thou/uL (0.0-0.2); #Eosinphils 0.1 thou/uL (0.0-0.7); #Lymphocytes 1.8 thou/uL (1.20-3.40); #Monocytes 0.5 thou/uL (0.11-0.59); #Neutrophils 4.9 thou/uL (1.40-6.50); %Basophils 1.3 % (0.0-1.0); %Eosinophils 1.3 % (0.0-10.0); %Lymphocytes 23.8 % (21.0-51.0); %Monocytes 6.5 % (0.0-10.0); %Neutrophils 67.1 % (42.0-75.0); Hemoglobin 15.8 g/dL (14.0-18.0); Mean Corpuscular Hemoglobin 26.7 pg (27.0-31.0); Mean Corpuscular Volume 86.1 fL (78.0-98.0); Mean Platelet Volume 8.5 fL (7.4-10.4); Platelet Count 285 thou/uL (130-400); RBC Distribution Width 13.3 % (11.5-14.5); Red Blood Cell (RBC) Count 5.93 mill/uL (4.70-6.10); White Blood Cell (WBC) Count 7.4 thou/uL (4.8-10.8)
[2020-01-11 10:14] LABS: CKMB 2.4 ng/mL (0-6.6)
[2020-01-11 10:40] LABS: ALT (SGPT) 45 U/L (8-55); AST (SGOT) 30 U/L (5-34); Alkaline Phosphatase 141 U/L (40-110); Anion Gap 12 mmol/L (10-20); BUN (Urea Nitrogen) 11 mg/dL (8.9-20.6); Bilirubin, Total 0.3 mg/dL (0.2-1.2); Calc. Creatinine Clearance 0 mL/min (70-130); Carbon Dioxide 23 mmol/L (22-29); Chloride 105 mmol/L (98-107); Estimated GFR-MDRD 86; Glucose 110 mg/dL (70-105); Lipase 32 U/L (8-78); Magnesium 1.9 mg/dL (1.6-2.6); Potassium 3.7 mmol/L (3.5-5.1); Sodium 136 mmol/L (136-145)
--- NOTE | 2020-01-11 10:53 | RAD ---
CHEST 1 VIEW: Date: 01/11/2020 HISTORY: Chest pain. COMPARISON: Chest radiograph from 2017. FINDINGS: Lungs are clear. No pneumothorax or effusion. Cardiac silhouette and mediastinal contours are similar . No acute osseous abnormality. IMPRESSION: No acute intrathoracic abnormality. POS: HOME
[2020-01-11] MEDS ORDERED: Lorazepam 2 MG/ML VIAL ONE ×2 (11:29→11:50)
--- NOTE | 2020-01-11 11:44 | CT ---
CT PULMONARY ANGIOGRAM WITH IV CONTRAST AND 3-D POSTPROCESSING: HISTORY: Chest pain. Exertional dyspnea. Previous history of pulmonary embolism COMPARISON: 08/05/2017 FINDINGS: There is good contrast opacification of the pulmonary arterial vasculature with extensive bilateral f illing defects consistent with pulmonary embolism. There is associated right ventricular strain. The thoracic aorta is well opacified without aneurysm or dissection. No pleural or pericardial effusions are seen. No pneumothoraces, focal areas of consolidation or lung nodules are noted. A small patchy area of randy undglass opacity seen in the right middle lobe. IMPRESSION: Bilateral pulmonary embolism with right ventricular strain. Discussed over the telephone with ER physician Dr. Danny Johnson at 11:40 AM.
[2020-01-11] MEDS ORDERED: Enoxaparin Sodium 60 MG/0.6 ML SYRINGE ONE (11:46)
--- NOTE | 2020-01-11 11:47 | CT ---
CT BRAIN WITHOUT CONTRAST: HISTORY: Seizure COMPARISON: 03/20/2017 FINDINGS: There is contrast from recent IV administration for CT pulmonary angiogram. No evidence of acute infarct, enhancing mass, midline shift or abnormal extra-axial fluid collections is seen. Possibility of hemorrhage cannot be completely excluded on this study. The ventricular size is appropriate and the basilar cisterns are patent. The bony calvarium is intact. The visualized paranasal sinuses and mastoid air cells are well aerated. IMPRESSION: No CT evidence of acute infarct or mass..
[2020-01-11] MEDS ORDERED: Rocuronium Bromide 10 MG/ML (10ML VIAL) ONE (11:56)
[2020-01-11] MEDS ORDERED: Rocuronium Bromide 50 MG/5 ML VIAL ONE (11:57)
[2020-01-11] MEDS ORDERED: Fentanyl 100 MCG/2 ML VIAL ONE (12:21)
[2020-01-11] MEDS ORDERED: Fentanyl 20 mcg/ml (100 ml CADD) IV PRN (12:27)
[2020-01-11 12:56] LABS: Actual Bicarbonate (HCO3a) 13.2 mEq/L (22-28); Analyzer IN Cardio ER; Base Excess (BEa) -17.7 mEq/L (-2.0 to +3.0); CO2 Tension 52.2 mmHg (35.0-45.0); Calcium, Ionized (arterial) 1.08 mmol/L (1.12-1.30); Carboxyhemoglobin (COHb) 0.3 gm% (0.0-3.0); Hemoglobin (Hb) 13.6 g/dL (14.0-18.0); O2 Tension (PaO2), arterial 85.5 mmHg (80.0-100.0); Potassium - ABG Lab 3.24 mmol/L (3.70-5.30)
--- NOTE | 2020-01-11 13:17 | RAD ---
Exam: Chest one view: HISTORY: Post central line placement ET tube COMPARISON: 01/11/2020 FINDINGS: Gastric tube and endotracheal tubes in satisfactory location. No significant acute intrathoracic dise ase. IMPRESSION: Gastric tube and endotracheal tube in satisfactory location. Less than optimal inspiration.
[2020-01-11] MEDS ORDERED: Norepinephrine 8 MG/0.9% NS 250 ML ONE ×2 (13:26→16:19)
[2020-01-11 13:31] LABS: Puncture Site LBA; pH, Arterial 7.02 (7.35-7.45)
[2020-01-11 14:02] LABS: Actual Bicarbonate (HCO3a) 16.5 mEq/L (22-28); Analyzer IN Cardio ER; CO2 Tension 31.4 mmHg (35.0-45.0); Calcium, Ionized (arterial) 1.09 mmol/L (1.12-1.30); Carboxyhemoglobin (COHb) 0.1 gm% (0.0-3.0); Hemoglobin (Hb) 14.5 g/dL (14.0-18.0); O2 Tension (PaO2), arterial 260.4 mmHg (80.0-100.0); Potassium - ABG Lab 3.76 mmol/L (3.70-5.30); pH, Arterial 7.34 (7.35-7.45)
[2020-01-11 14:04] LABS: Puncture Site LRA
[2020-01-11 14:10] LABS: Troponin I 0.583 ng/mL (< 0.028)
[2020-01-11] MEDS ORDERED: Propofol 1,000 MG/100 ML VIAL IV ONE (15:07)
[2020-01-11] MEDS: Propofol 1,000 MG/100 ML VIAL IV PRN ×2 (15:10→18:44)
[2020-01-11] MEDS: Sodium Chloride 0.9% 1,000 ML IV SCH (15:30)
[2020-01-11] MEDS ORDERED: Ventilator Sedation Protocol 1 EACH FS SCH (15:30)
[2020-01-11 15:44] LABS: Actual Bicarbonate (HCO3a) 16.4 mEq/L (22-28); Base Excess (BEa) -13.2 mEq/L (-2.0 to +3.0); Calcium, Ionized (arterial) 1.13 mmol/L (1.12-1.30); Carboxyhemoglobin (COHb) 0.1 gm% (0.0-3.0); Hemoglobin (Hb) 14.2 g/dL (14.0-18.0); O2 Tension (PaO2), arterial 51.9 mmHg (80.0-100.0); Potassium - ABG Lab 3.42 mmol/L (3.70-5.30); pH, Arterial 7.11 (7.35-7.45)
[2020-01-11 15:45] LABS: Puncture Site LRA
[2020-01-11] MEDS ORDERED: Heparin 25,000 units/D5W 500 ML IVPB SCH (15:45)
[2020-01-11] MEDS ORDERED: Heparin 10,000 UNITS/ 10 ML VIAL SLOW IVP SCH (15:45)
[2020-01-11] MEDS ORDERED: Albumin 5% 250 ML ONE (15:54)
--- NOTE | 2020-01-11 16:00 | RAD ---
Chest one view HISTORY: Pulmonary embolus. Chest pain. COMPARISON: 01/11/2020. FINDINGS: Cardiac silhouette is magnified by projection. Pulmonary vasculature accentuated by shallow inspiration. Right hemidiaphragm now more elevated with increased right basilar parenchymal opacity. Endotracheal catheter tip remains at the thoracic inlet. Nasogastric tube in place with proximal sidehole just above the level of the diaphragm. IMPRESSION : Nasogastric tube should probably be advanced approximately 10 cm for better positioning. Developing atelectasis at the right lung base.
[2020-01-11] MEDS ORDERED: Fentanyl BOLUS 250 ML IVPB PRN (16:11)
[2020-01-11] MEDS ORDERED: Morphine 2 MG/ML VIAL SLOW IVP PRN (16:11)
[2020-01-11] MEDS ORDERED: DISCONTINUE PREVIOUS NARCOTIC PAIN MEDICATIONS AND BENZODIAZEPINES FS SCH (16:11)
[2020-01-11] MEDS ORDERED: Lorazepam 2 MG/ML VIAL SLOW IVP PRN (16:11)
[2020-01-11] MEDS ORDERED: fentaNYL Citrate/PF 2,000 MCG in Sodium Chloride 0.9% 60 ML IV SCH (16:11)
[2020-01-11] MEDS ORDERED: Propofol BOLUS 1,000 MG/100 ML VIAL IV PRN (16:11)
[2020-01-11] MEDS ORDERED: Tenecteplase 50 MG - STEMI KIT ONE (16:12)
[2020-01-11 16:15] LABS: Hemoglobin 12.3 g/dL (14.0-18.0); Platelet Count 226 thou/uL (130-400)
[2020-01-11 16:19] LABS: INR-International Normal Ratio 2.1; PTT 68.5 sec (22.9-36.1); Prothrombin Time 23.6 sec (12.0-14.7)
[2020-01-11] MEDS ORDERED: Hydrocortisone Sod Succ/PF 100 mg/2 ml Vial IVP SCH (16:30)
[2020-01-11 16:38] LABS: D-Dimer Test Greater than 20.00 *mcg/mL (0.27-0.43)
[2020-01-11 16:49] LABS: Troponin I 1.833 ng/mL (< 0.028)
[2020-01-11] MEDS ORDERED: cefTRIAXone\\ROCEPHIN 1 GM in Sodium Chloride 0.9% 100 ML IVPB SCH (17:00)
[2020-01-11] MEDS ORDERED: Azithromycin 500 MG in Sodium Chloride 0.9% 250 ML 250 ML IVPB SCH (17:00)
[2020-01-11] MEDS: Dexamethasone 4 MG in Sodium Chloride 0.9% 50 ML IVPB SCH ×2 (17:13→23:03)
--- NOTE | 2020-01-11 17:15 | HP ---
PRIMARY CARE PHYSICIAN: Efrain Garnett MD CHIEF COMPLAINT: Shortness of breath. HISTORY OF PRESENT ILLNESS: This is a 39-year-old male with a history of previous PE, who has not been on his anticoagulation recently, who presented to the emergency room with shortness of breath upon awakening this morning. All history is taken from the chart and from talking to the ER doctor as the patient is currently intubated. The patient was seen in our hospital back in 2017 with a bilateral submassive pulmonary embolism with right heart strain. He was treated with anticoagulation at that time and was discharged on Xarelto. He has followed up with Dr. Galvez in the past. The patient presented to the emergency room complaining of shortness of breath since he woke up in the morning. Also, sharp chest pain in the substernal that worsened with exertion and also exertional shortness of breath. The patient denied any COVID contacts, fever, hemoptysis, or other symptoms. He was noted to be tachycardic in the emergency room, but was initially maintaining his oxygen saturations. The patient went to CT. He was given 1 mg/kg of Lovenox. He was then taken to CT and CT of the chest did show bilateral pulmonary embolism with right ventricular strain. While in the CT scanner, the patient became altered and hypoxic and had a small seizure. A head CT was then conducted, which was negative. The patient was given a half dose of tPA as he had become very tachypneic and hypoxic and was decompensating. He then decompensated rapidly into pulseless electrical activity after arriving back in his ER room and had CPR and was put on with several rounds of epinephrine and vasopressin. The emergency room physician also intubated the patient and placed a left femoral central line. He was given tenecteplase for massive pulmonary embolism, and then he did have return of spontaneous circulation after 10 minutes of CPR. He was put on epinephrine and norepinephrine drips to maintain his blood pressure. The patient was then admitted to the ICU. Dr. Galvez has been consulted and is at the bedside. REVIEW OF SYSTEMS: Unable to obtain secondary to the patient's mental status. PAST MEDICAL HISTORY: Previous pulmonary embolism. PAST SURGICAL HISTORY: None. SOCIAL HISTORY: The patient chews tobacco. Drinks socially. No illicit drug use. He is and lives with his , Conchis Carvalho. FAMILY HISTORY: No history of blood clots in the family. His father did have a myocardial infarction. ALLERGIES: NO KNOWN DRUG ALLERGIES. CURRENT MEDICATIONS: None. PHYSICAL EXAMINATION: VITAL SIGNS: Blood pressure 116/60, pulse 125, respirations on the vent, pulse ox was initially 100%, now is dropped to 80% on 100% iO2 though not with a good waveform on the O2 monitor, temperature not obtained in the emergency room. GENERAL: This is an obese male, intubated on the ventilator with some coughing motions and some movement of upper and lower extremities, though it does not appear coordinated nor intentional. HEENT: Pupils equal, round, and mildly reactive to light. Oropharynx with ET tube in place. HEART: Regular rate and rhythm. No murmurs, rubs, or gallops. LUNGS: Clear to auscultation bilaterally. No wheezes, crackles, or rhonchi. ABDOMEN: Soft, obese, nontender to palpation. Normoactive bowel sounds. No hepatosplenomegaly or other masses. EXTREMITIES: No clubbing, cyanosis, or edema. He does have good peripheral pulses now. SKIN: No rashes or lesions noted. NEUROLOGIC: The patient does not have any focal findings. He is mildly responsive on the vent, but is not able to follow any commands or wake up. LABORATORY DATA: CBC grossly within normal limits. Coagulation profile: D- dimer elevated at 11. Most recent arterial blood gas shows a pH of 7.11, pCO2 of 53, pO2 of 51, and Dr. Galvez is adjusting the vent as needed. Complete metabolic panel is notable for a glucose of 110, alkaline phosphatase of 140. The rest of it was normal. Lipase was negative. Troponin was initially indeterminate at 0.246, however, repeat after the code was 0.5, CK-MB 2.4. Brain natriuretic peptide was negative. His COVID screen was done and just came back positive. Chest x-ray, I did review the chest x-ray done in the emergency room along with the radiologist 's report. It shows a normal cardiac silhouette, clear lung nicholas. No evidence for COVID pneumonia. No other abnormalities. CT angio of the chest and thorax as above in the HPI. CT of the brain as per the HPI. EKG done in the emergency room shows sinus tachycardia with a heart rate of 120 and S1Q3T3 pattern as well as anterior T-wave inversions suspicious for PE. ASSESSMENT: 1. Acute massive pulmonary embolism with cardiac code. The patient is being given the clot buster available in the emergency room urgently, tenecteplase as well as 1 mg/kg of enoxaparin. We will continue full-dose Lovenox and monitor the patient closely in the ICU. 2. Acute hypoxic respiratory failure secondary to #1, currently intubated and Dr. Galvez consulted managing the vent. 3. Pulseless electrical activity arrest secondary to #1, now with spontaneous return of circulation. We will consult Cardiology for assistance. 4. History of previous pulmonary embolism, needs lifelong anticoagulation. 5. Obesity. 6. Elevated troponin secondary to #1. 7. Gastrointestinal prophylaxis, put patient on Pepcid IV. 8. Code status: The patient is a full code. He has listed next of kin are his spouse, Conchis Carvalho and his mother, Maryjo Rojas. Job ID: [id number] MTDD
--- NOTE | 2020-01-11 18:49 | CON ---
DATE OF CONSULTATION: 01/11/2020 REASON FOR CONSULTATION: Massive pulmonary embolism. HISTORY OF PRESENT ILLNESS: Mr. Rojas is a pleasant 39-year-old gentleman, who came to the hospital for shortness of breath. He was evaluated in the ER and was found to have large bilateral pulmonary embolisms. He does have a history of PEs. He had submassive PEs back in 2017. At that point, he was thrown off a horse and he remembers one of the legs being caught under the horse and it was thought that this was the reason for his DVT and subsequent PEs. He was placed on anticoagulation and sent home, he followed up for 2 yrs and kept on anticoagulation for 1 yr total. While he was in the CT scanner in the ER, he became hypoxic and CPR was started due to the PEA arrest. TPA was given in the ER and then, he was transferred up to ICU, intubated post CPR. CPR was actually 10 minutes long. He has been on epinephrine and norepinephrine since. He was swabbed for COVID-19 and actually the swab came back positive. He remains sedated and intubated. PAST MEDICAL HISTORY: History of pulmonary embolism, thought to be related to a fall. PAST SURGICAL HISTORY: None. SOCIAL HISTORY: Social alcohol use. No drug use. Chews tobacco. with . REVIEW OF SYSTEMS: Unobtainable as patient is intubated. FAMILY HISTORY: Noncontributory. No history of blood clots in family members. ALLERGIES: NO KNOWN DRUG ALLERGIES. MEDICATIONS: None. PHYSICAL EXAMINATION: VITAL SIGNS: Temperature 98.2, pulse rate 108, respiratory rate 30, saturating 100% on 100% FiO2, and blood pressure is 78/53. GENERAL: Sedated, intubated. NECK: Supple. LUNGS: Coarse breath sounds. CARDIOVASCULAR: Tachycardic. ABDOMEN: Soft. EXTREMITIES: No edema. SKIN: Warm and dry. LABORATORY DATA: Laboratory work was reviewed. CBC with a white count of 7, hemoglobin 15, hematocrit 51, and platelet count of 285. Coags were reviewed. INR is 2.1. ABG was reviewed. Chemistries were reviewed. Troponin was 0.24, 0.58 and 1.8. BNP was 18. CMP was unremarkable except for a glucose of 110. COVID-[address] of the chest was reviewed, has bilateral pulmonary embolisms with dilated right-sided heart consistent with history of acute massive pulmonary embolism. ASSESSMENT/PLAN: 1. Massive pulmonary embolism. 2. Status post PEA arrest. 3. Distributive shock. 4. Type 2 MS, demand ischemia. PLAN: 1. Continue heparin drip. 2. Continue pressor support. 3. Supportive care and general cares for COVID-19 pneumonia; although, his CT looks more like just a pulmonary embolism rather than COVID-19 pneumonia. 4. The patient is severely ill and would not be unexpected. 45 minutes of critical care time. Job ID: [id number] MTDD
[2020-01-11] MEDS ORDERED: Ipratropium/Albuterol Sulfate 4 GM AER IH SCH (19:00)
[2020-01-11] MEDS ORDERED: Sodium Bicarb 50 MEQ/50 ML Abboject 8.4% SYRINGE ONE (19:10)
[2020-01-11] MEDS: Famotidine/PF 20 mg/2ml Vial SLOW IVP SCH (19:30)
[2020-01-11] MEDS ORDERED: Sodium Bicarb 50 MEQ/50 ML Abboject 8.4% SYRINGE IVP SCH (19:45)
--- NOTE | 2020-01-11 21:55 | CON ---
DATE OF CONSULTATION: HISTORY OF PRESENT ILLNESS: This is a 39-year-old gentleman, who came to the ER with chest pain and shortness of breath. In the ER, he walked in the room, I was told he has had prior history of pulmonary emboli. He was on Xarelto in the past, unclear when this was discontinued. Unable to get any family members to get additional information. Post CT of his chest, which showed bilateral pulmonary emboli. He apparently proceeded to have an arrest. I am told by the nurses from the ER about the patient that he was given Lovenox subcu and apparently what appears to be tPA. He is intubated in the vent. CT head was done emergency, which was negative. Arrival on the ICU, he was agitated, though he was responsive some to the commands. He has now been additionally sedated. He was seen by us in 2017. I do not think Mr. Rojas has come back to the office. PAST MEDICAL HISTORY: His previous history showed that his past medical history is pertinent for no other major medical problems. No history of diabetes or hypertension. PAST SURGICAL HISTORY: Previous surgeries none. SOCIAL HISTORY: Tobacco minimal at that time. REVIEW OF SYSTEMS: Otherwise unobtainable. PHYSICAL EXAMINATION: VITAL SIGNS: He was given epinephrine drip in the ER, but his blood pressure now is 118/65, pulse 127, and saturations are 77% on 100%. CHEST: Decreased breath sounds. I hear no wheezing. CARDIAC: Normal S1 and S2. No gallops. ABDOMEN: Soft. LABORATORY DATA: His chest x-ray did not show any acute infiltrates. CT chest did show the pulmonary emboli. CT brain was negative. Additional lab shows pO2 was 260, pCO2 post intubation. His troponin was elevated. His BNP was 18. White count 7000 and H and H 15 and 51. D-dimer is elevated. Lytes are normal. ASSESSMENT: 1. Massive pulmonary emboli, recurrent. 2. Status post seizure. 3. Cardiac arrest. PLAN: Echo is being ordered. Continue present anticoagulation. I am going to discuss with the ER physician exactly what medicine was given. IV fluids being initiated. He is going to require lifelong anticoagulation. Discussed with family we have tried several numbers, none of them in working order. This is a 1 hour of critical care time. Job ID: [id number]
[2020-01-11] MEDS: Albuterol 200 PUFF (6.7GM INHALER) INH SCH ×2 (22:02→23:46)
[2020-01-11 23:51] LABS: PTT Greater than 250.0 sec (22.9-36.1)
[2020-01-12] MEDS: Norepinephrine 8 MG/0.9% NS 250 ML IVPB SCH ×6 (00:49→21:13)
[2020-01-12] MEDS ORDERED: Ipratropium/Albuterol Sulfate 4 GM AER IH SCH (01:00)
[2020-01-12 02:01] LABS: #Basophils 0.1 thou/uL (0.0-0.2); #Eosinphils 0.1 thou/uL (0.0-0.7); #Lymphocytes 2.3 thou/uL (1.20-3.40); #Monocytes 0.4 thou/uL (0.11-0.59); #Neutrophils 12.4 thou/uL (1.40-6.50); %Basophils 0.4 % (0.0-1.0); %Eosinophils 0.6 % (0.0-10.0); %Lymphocytes 15.3 % (21.0-51.0); %Monocytes 2.8 % (0.0-10.0); Hemoglobin 7.7 g/dL (14.0-18.0); Mean Corpuscular Hemoglobin 28.7 pg (27.0-31.0); Mean Corpuscular Volume 89.7 fL (78.0-98.0); Mean Platelet Volume 7.1 fL (7.4-10.4); Platelet Count 198 thou/uL (130-400); RBC Distribution Width 12.3 % (11.5-14.5); Red Blood Cell (RBC) Count 2.69 mill/uL (4.70-6.10); White Blood Cell (WBC) Count 15.4 thou/uL (4.8-10.8)
[2020-01-12 02:23] LABS: Anion Gap 17 mmol/L (10-20); BUN (Urea Nitrogen) 16 mg/dL (8.9-20.6); Calc. Creatinine Clearance 50 mL/min (70-130); Calcium 6.6 mg/dL (7.8-10.44); Carbon Dioxide 16 mmol/L (22-29); Chloride 110 mmol/L (98-107); Estimated GFR-MDRD 28; Glucose 355 mg/dL (70-105); Sodium 138 mmol/L (136-145)
[2020-01-12 02:24] LABS: Actual Bicarbonate (HCO3a) 9.2 mEq/L (22-28); Base Excess (BEa) -19.6 mEq/L (-2.0 to +3.0); CO2 Tension 33.8 mmHg (35.0-45.0); Calcium, Ionized (arterial) 1.03 mmol/L (1.12-1.30); Carboxyhemoglobin (COHb) 0.3 gm% (0.0-3.0); Hemoglobin (Hb) 7.3 g/dL (14.0-18.0); Potassium - ABG Lab 4.72 mmol/L (3.70-5.30)
[2020-01-12 02:26] LABS: pH, Arterial 7.05 (7.35-7.45)
[2020-01-12 02:27] LABS: Puncture Site LRA
[2020-01-12] MEDS: Sodium Bicarb 50 MEQ/50 ML Abboject 8.4% SYRINGE IVP SCH ×4 (02:40→06:00)
[2020-01-12] MEDS: Sodium Chloride 0.9% 1,000 ML IV SCH ×3 (02:40→21:14)
[2020-01-12] MEDS ORDERED: Sodium Bicarbonate 150 MEQ in Dextrose 5% in Water 1,000 ML IV SCH (03:30)
[2020-01-12] MEDS ORDERED: Sodium Bicarb 50 MEQ/50 ML Abboject 8.4% SYRINGE ONE (04:23)
[2020-01-12] MEDS: Vasopressin 20 UNIT, Admixture Fee 1 EACH in Sodium Chloride 0.9% 50 ML IV SCH ×2 (04:51→18:30)
[2020-01-12] MEDS: Dexamethasone 4 MG in Sodium Chloride 0.9% 50 ML IVPB SCH (05:34)
[2020-01-12] MEDS: Propofol 1,000 MG/100 ML VIAL IV PRN ×2 (06:42→20:22)
[2020-01-12 07:05] LABS: Actual Bicarbonate (HCO3a) 11.1 mEq/L (22-28); Base Excess (BEa) -16.3 mEq/L (-2.0 to +3.0); CO2 Tension 32.4 mmHg (35.0-45.0); Calcium, Ionized (arterial) 0.98 mmol/L (1.12-1.30); Carboxyhemoglobin (COHb) 0.5 gm% (0.0-3.0); Hemoglobin (Hb) 7.2 g/dL (14.0-18.0); O2 Tension (PaO2), arterial 256.5 mmHg (80.0-100.0); Potassium - ABG Lab 4.64 mmol/L (3.70-5.30)
[2020-01-12 07:17] LABS: Hemoglobin 7.1 g/dL (14.0-18.0); Mean Corpuscular HGB CONC 32.4 g/dL (32.0-36.0); Mean Corpuscular Hemoglobin 29.8 pg (27.0-31.0); Mean Corpuscular Volume 91.8 fL (78.0-98.0); Mean Platelet Volume 7.3 fL (7.4-10.4); Platelet Count 134 thou/uL (130-400); RBC Distribution Width 12.1 % (11.5-14.5); Red Blood Cell (RBC) Count 2.38 mill/uL (4.70-6.10); White Blood Cell (WBC) Count 21.2 thou/uL (4.8-10.8)
[2020-01-12 07:18] LABS: pH, Arterial 7.15 (7.35-7.45)
[2020-01-12 07:19] LABS: Puncture Site RBRACH
[2020-01-12 07:35] LABS: Anion Gap 27 mmol/L (10-20); BUN (Urea Nitrogen) 18 mg/dL (8.9-20.6); Calc. Creatinine Clearance 39 mL/min (70-130); Calcium 6.4 mg/dL (7.8-10.44); Carbon Dioxide 13 mmol/L (22-29); Chloride 110 mmol/L (98-107); Estimated GFR-MDRD 21; Glucose 232 mg/dL (70-105); Potassium 4.5 mmol/L (3.5-5.1); Sodium 145 mmol/L (136-145)
[2020-01-12] MEDS: Albuterol 200 PUFF (6.7GM INHALER) INH SCH ×4 (07:37→23:39)
--- NOTE | 2020-01-12 07:52 | RAD ---
EXAM: Single view of the chest HISTORY: Ventilated patient with respiratory failure COMPARISON: 01/11/2020 FINDINGS: Single view of the chest shows a normal sized cardiomediastinal silhouette. The endotrache al tube and NG tube are unchanged in position. Atelectasis is seen in the inferior aspect of the right upper lobe. The bones are unremarkable. IMPRESSION: Right upper lobe atelectasis
--- NOTE | 2020-01-12 08:02 | ULT ---
ULTRASOUND RETROPERITONEUM COMPLETE (RENAL) DOPPLER DUPLEX: DATE: 01/12/2020 HISTORY: 39-year-old male with renal failure. Rule out renal infarction TECHNIQUE: Grayscale, color-flow, and spectral analysis, of kidneys. FINDINGS: There is a moderate amount of free intraperitoneal fluid. Right kidney: 8.5 x 4.5 x 4.5 cm. Left kidney: 10 x 4.5 x 5 cm. No hydronephrosis bilaterally. Because of the ascites and because of body habitus, it is technically difficult to roller picker arterial w aveforms in the kidneys. The main renal arteries themselves are very difficult to identify. Pulse Doppler images demonstrate a mixture of pulsatile arterial flow and venous flow in the bilateral rc l parenchyma. The urinary bladder is not imaged. IMPRESSION: 1) Limited Doppler evaluation of the kidneys. 2) no hydronephrosis. 3) ascites
[2020-01-12] MEDS: Famotidine/PF 20 mg/2ml Vial SLOW IVP SCH (08:03)
[2020-01-12 08:34] LABS: Band 11 % (5-11); Lymphocytes 19 % (21-51); MDiff Complete? YES; Metamyelocyte 3 % (0-0); Monocytes 3 % (0-10); Myelocyte 1 % (0-0); Neutrophil 63 % (42-75); Platelet Morphology Comment Appears Adequate; Polychromasia SLIGHT = 2-3 cells (100X) (0-2/hpf)
--- NOTE | 2020-01-12 08:48 | PDOC.HOSPP ---
- Subjective Encounter Date: 01/12/20 Encounter Time: 11:00 Subjective: Patient with episodes of unresponsiveness with acidosis overnight, resolved with Bicarb. Was stable this morning, then soon after I say him he went into cardiac arrest. See Dr. Harding's Code note for details. Patient with acidosis and severe drop in hemoglobin. Getting transfused. Holding anticoagulants. - Objective Vital Signs & Weight: Vital Signs (12 hours) Temp Pulse Resp BP 01/12/20 07:47 24 H 01/12/20 07:31 118 H 01/12/20 06:00 25 H 01/12/20 05:15 98.0 F 01/12/20 04:37 98.4 F 01/12/20 04:00 24 H 01/12/20 02:40 121 H 104/41 L 01/12/20 02:00 97.9 F 24 H 01/12/20 00:00 98.6 F 24 H 01/11/20 23:46 112 H 01/11/20 22:03 95 01/11/20 22:00 24 H Weight Weight 238 lb 8.642 oz Most Recent Monitor Data Heart Rate from ECG 118 NIBP 72/53 NIBP BP-Mean 75 Respiration from ECG 24 SpO2 100 I&O: 01/11/20 01/12/20 01/13/20 06:59 06:59 06:59 Intake Total 5068 Output Total 1465 Balance 3603 Result Diagrams: 01/12/20 07:05 01/12/20 07:05 Additional Labs: Accuchecks 01/12/20 01/11/20 01:42 11:38 POC Glucose 281 H 95 Hospitalist ROS - Review of Systems ROS unobtainable: due to endotracheal tube - Medication Medications: Active Medications Generic Name Dose Route Start Last Admin Trade Name Freq PRN Reason Stop Dose Admin Albuterol Sulfate 2 puff 01/11/20 19:00 01/12/20 07:37 Proventil Hfa INH 2 puff [id number] MIKAELA Administration Fentanyl Citrate 2,000 mcg/ 100 mls @ 0 mls/hr 01/11/20 12:27 01/12/20 02:40 Sodium Chloride IV 100 mls INF PRN Administration Pain As Directed Sodium Chloride 1,000 mls @ 100 mls/hr 01/11/20 15:30 01/12/20 02:40 Normal Saline 0.9% IV 1,000 mls .Q10H MIKAELA Administration Heparin Sodium/Dextrose 500 mls @ 0 mls/hr 01/11/20 15:45 01/11/20 16:00 Heparin 25,000 Units/D5w IVPB 500 mls INF MIKAELA Administration Protocol Per Protocol Norepinephrine Bitartrate 250 mls @ 0 mls/hr 01/11/20 16:47 01/12/20 08:03 Levophed IVPB 250 mls INF MIKAELA Administration Protocol Titrate Sodium Bicarbonate 150 meq/ 1,150 mls @ 50 mls/hr 01/12/20 03:30 01/12/20 03: 05 Dextrose/Water IV 1,150 mls INF MIKAELA Administration Vasopressin 20 unit/ 51 mls @ 0 mls/hr 01/12/20 04:45 01/12/20 04:51 Miscellaneous Medication 1 IV 51 mls each/ Sodium Chloride INF MIKAELA Administration Protocol As Directed Propofol 1,000 mg 01/11/20 16:11 01/12/20 06:42 Diprivan IV 02/10/20 16:11 1,000 mg INF PRN Administration TO ACHIEVE GOAL RASS Protocol Sodium Chloride 10 ml 01/11/20 21:00 01/12/20 08:03 Flush - Normal Saline IVF 10 ml Q12HR MIKAELA Administration - Exam General - other findings: not responsive on the vent, sedated Eye: PERRL ENT: moist mucosa Heart: RRR, no murmur, no gallops, no rubs Respiratory: CTAB, no wheezes, no rales, no ronchi Gastrointestinal: soft, non-tender, non-distended, normal bowel sounds Psychiatric - other findings: sedated on the vent Hosp A/P (1) Bilateral pulmonary embolism Code(s): I26.99 - OTHER PULMONARY EMBOLISM WITHOUT ACUTE COR PULMONALE Status : Acute (2) Cardiac arrest with pulseless electrical activity Code(s): I46.9 - CARDIAC ARREST, CAUSE UNSPECIFIED Status: Resolved (3) Acute respiratory failure with hypoxia Code(s): J96.01 - ACUTE RESPIRATORY FAILURE WITH HYPOXIA Status: Acute (4) Metabolic acidosis Code(s): E87.2 - ACIDOSIS Status: Acute Plan: severe (5) COVID-19 Code(s): U07.1 - COVID-19 Status: Acute (6) JEOVANY (acute kidney injury) Code(s): N17.9 - ACUTE KIDNEY FAILURE, UNSPECIFIED Status: Acute (7) Shock Code(s): R57.9 - SHOCK, UNSPECIFIED Status: Acute (8) Obesity Code(s): E66.9 - OBESITY, UNSPECIFIED Status: Chronic (9) Acute blood loss anemia Code(s): D62 - ACUTE POSTHEMORRHAGIC ANEMIA Status: Acute - Plan Patient remains on the vent on pressors. Severely metabolic acidosis and now severe anemia. Given multiple dose of Bicarb this morning and during code. Transfusing. Sedation started on the vent. Creatinine elevating, likely ATN, still with good UOP Holding Heparin. No anticoagulants until bleeding stops. Updated patient's daughter Jeana Rojas [phone] as well as his niece who works in the transfer center. Patient is critically ill. Prognosis poor.
[2020-01-12 09:07] LABS: Bilirubin Negative (Negative); Blood, Urine 2+ (Negative); Clarity Turbid (Clear); Glucose, Urine (Dipstick) 100 mg/dL (Negative); Ketone, Urine Trace mg/dL (Negative); Leukocyte Negative Leu/uL (Negative); Nitrite Negative (Negative); Protein, Urine (Dipstick) 70 mg/dL (Neg-Trace); RBC/HPF Greater than 50 HPF (0-3); Specific Gravity, Urine 1.042 (1.002-1.036); Squamous Epithelial None Seen HPF (0-3); Urobilinogen Normal mg/dL (Less than 2); WBC/HPF Greater than 50 HPF (0-3); pH, Urine 5.5 (5.0-9.0)
[2020-01-12 09:12] LABS: Bacteria/HPF 2+ HPF (None Seen)
--- NOTE | 2020-01-12 09:59 | PRG ---
DATE OF SERVICE: 01/12/2020 SUBJECTIVE: He is a gentleman with bilateral pulmonary emboli status post shock, required emergency tPA 50 mg. All night, he had problems with his blood pressure and severe metabolic acidosis. He has developed progressive renal failure. He is now on Levophed and vasopressin. OBJECTIVE: VITAL SIGNS: His systolic blood pressure is 110, pulse is 120, sats are 100%, respiratory rate 24. Minimal urine output. CHEST: Reveals decreased breath sounds. Minimal rhonchi. CARDIAC: Sinus tach. ABDOMEN: Soft. EXTREMITIES: He has some hematoma on his left groin where they tried to put a central line. LABORATORY DATA: His white count is 15,000, H and H is 7 and 24, which has dropped substantially. His platelet count is still normal. PTT was 173. Heparin discontinued. Blood gases are pending. Previous blood gas shows a pO2 of 320, pCO2 of 33%, pH 7.05. His bicarb on the blood gas, chemistry, 17, creatinine is 2.9, BUN 16, and glucose 355. IMPRESSION: 1. Metabolic acidosis, shock. 2. Acute tubular necrosis. 3. Bilateral pulmonary emboli, status post shock requiring tPA 50 mg. 4. Known history of previous pulmonary embolism/deep venous thrombosis. PLAN: He is on a bicarb drip. He is on Levophed, pressors, Decadron, steroids, and empiric antibiotics. To our surprise, his frazier test was positive. We are repeating the test this morning. I am in the process of discontinuing his Decadron. Nephrology was consulted. He probably may require emergent dialysis if his bicarb is not improved. We will discuss with family. Prognosis remains grave. Once his PTT comes back to normal, we will restart the heparin to try and maintain his PTT less than 100. I am concerned about his significant blood loss. It is unclear where he is bleeding from, but it does not appear to be GI in origin. Once he is stabilized, we may consider repeating CT head, chest and abdomen, though clearly his right lower lung atelectasis is improved. TIME SPENT: This is a 45-minute critical care time. Job ID: [id number]
--- NOTE | 2020-01-12 10:57 | CON ---
DATE OF CONSULTATION: SERVICE: Renal Medicine. HISTORY OF PRESENT ILLNESS: Mr. Rojas is a 39-year-old black male, who was initially admitted for shortness of breath. He was found to have a massive pulmonary embolism. During the said imaging, the patient went to acute cardiorespiratory arrest. He was pulseless. CPR was done and they were able to bring back the patient. We are now being consulted for his acute kidney injury. Please note that in the past almost three years ago, the patient had a submassive pulmonary embolism. According to the history, the patient has not been taking his anticoagulation. REVIEW OF SYSTEMS: Not obtainable since the patient is intubated on ventilator support. MEDICATIONS: 1. Status post albumin infusion, albuterol neb treatment q.4 as needed. 2. Azithromycin 250 mg IV daily. 3. Ceftriaxone 1 g IV daily. 4. Status post dexamethasone. 5. Famotidine 20 mg IV daily. 6. Fentanyl drip. 7. Heparin anticoagulation. 8. Lorazepam p.r.n. 9. Morphine 2 mg IV q.1 p.r.n. 10. The patient is on norepinephrine drip. 11. He is currently on normal saline 100 mL/hour. 12. Status post sodium bicarbonate infusion 13. Vasopressin drip. Cardiac echo pending. Renal ultrasound with Doppler-renal arterial flow could not be visualized due to significant ascites. There is no evidence of hydronephrosis. PAST MEDICAL HISTORY: The patient's past medical history includes: 1. Status post submassive pulmonary embolism. 2. Recent finding of ascites, recently recurrent pulmonary embolism. PAST SURGICAL HISTORY: None. ALLERGIES: NONE. TRAUMA: Status post right leg injury secondary to horse falling on the right leg. IMMUNIZATION: Unknown. HOSPITALIZATIONS: Please see past medical history. SOCIAL HISTORY: The patient chews tobacco. Alcohol is occasional. No IV drug use. FAMILY HISTORY: No family history of ESRD. PHYSICAL EXAMINATION: VITAL SIGNS: Blood pressure is noted at 72/53 with a heart rate of 118, respiratory rate 24, and O2 sat 100%. GENERAL: The patient is sedated, intubated on ventilator support. Obese. SKIN: Adequate turgor. HEENT: He has a pale conjunctivae. Anicteric sclerae. NECK: No neck mass. No carotid bruits. No JVD. CHEST: No deformities. LUNGS: Decreased breath sounds. HEART: Tachycardic. No murmur. No gallops. No rubs. ABDOMEN: Globular and soft. Positive for ascites. EXTREMITIES: No edema. LABORATORY DATA: Laboratories of January 12, 2020; white count 21.2 hemoglobin 7.1 , hematocrit 21.8. Sodium 145, potassium 4.5, chloride 110, carbon dioxide 13, BUN is 18, creatinine 3.84, and calcium is 6.4. On January 11, 2020, creatinine was 1.14. On March 23, 2017, creatinine 1.32. Urinalysis of January 12, 2020, shows specific gravity of 1.042, rbc greater than 50, wbc greater than 50, findings of significant granular casts. IMAGING STUDIES: Chest x-ray, no acute findings. CT of the chest, his last thorax showed bilateral pulmonary embolism with right ventricular strain. CT scan of the brain, no acute intracranial abnormality. ASSESSMENT AND PLAN: 1. Massive pulmonary embolism. Currently, the patient has been given anticoagulation. Management is essentially supportive. Pulmonary is following. 2. Acute kidney injury-consider superimposed ischemic acute tubular necrosis. The patient went to cardiac arrest and blood pressure became unstable. In addition, urinalysis reveals numerous pigmented granular casts suggesting the possibility of acute tubular necrosis. We try to image from a vascular point of view the renal arteries, but this was not successful due to difficulty in imaging the renal vessels. 3. Management, if it is renal infarction, treatment is already being done since patient did have pulmonary embolism. This patient is too unstable to have any surgical intervention even if there is a finding of an acute renal artery infarction. The patient is hemodynamically unstable with the low blood pressure, currently on pressor support. 4. New onset ascites-he eventually will need further workup. Case discussed with Dr. Galvez. If metabolic acidosis remains unchanged, we may need to consider dialytic intervention. Overall, prognosis remains guarded. Job ID: [id number] [facility]
[2020-01-12 10:59] LABS: Factor VIII Test 75.3 % ACTIVE (56-157)
[2020-01-12 12:06] LABS: Actual Bicarbonate (HCO3a) 15.5 mEq/L (22-28); Base Excess (BEa) -11.9 mEq/L (-2.0 to +3.0); CO2 Tension 44.3 mmHg (35.0-45.0); Calcium, Ionized (arterial) 0.79 mmol/L (1.12-1.30); Carboxyhemoglobin (COHb) 0.3 gm% (0.0-3.0); O2 Tension (PaO2), arterial 363.8 mmHg (80.0-100.0); Potassium - ABG Lab 5.14 mmol/L (3.70-5.30)
[2020-01-12] MEDS ORDERED: Norepinephrine 4 MG/4 ML VIAL ONE (12:22)
[2020-01-12] MEDS ORDERED: Norepinephrine 8 MG/0.9% NS 250 ML ONE (12:23)
--- NOTE | 2020-01-12 12:57 | PRG ---
DATE OF SERVICE: 01/12/2020 The patient had an arrest with pulseless electrical activity around 11:45 this morning. He was given sequential epinephrine bag, ET tube ventilation, and chest compressions. Within 15 minutes, he regained a pulse. He was given bicarbonate during the code for acidosis and post code blood gas showed a pH of 7.16 with a pO2 above 300. However, the hemoglobin on the blood gas was about 4. It is presumed that the patient probably has a retroperitoneal bleed after receiving the tPA last night as he has extensive swelling down in his left groin. The patient has been started on multiple vasopressor drips including epinephrine, Levophed, and vasopressin. He will receive 4 units of packed red blood cells and then have his H and H rechecked. Family has been informed by Dr. Mora. Prognosis is guarded. Job ID: [id number]
[2020-01-12 13:37] LABS: Base Excess (BEa) -17.5 mEq/L (-2.0 to +3.0); CO2 Tension 36.2 mmHg (35.0-45.0); Calcium, Ionized (arterial) 0.78 mmol/L (1.12-1.30); Carboxyhemoglobin (COHb) 0.3 gm% (0.0-3.0); Hemoglobin (Hb) 9.7 g/dL (14.0-18.0); O2 Tension (PaO2), arterial 88.6 mmHg (80.0-100.0); Potassium - ABG Lab 4.16 mmol/L (3.70-5.30)
[2020-01-12 13:47] LABS: pH, Arterial 7.16 (7.35-7.45)
[2020-01-12 13:48] LABS: Hemoglobin (Hb) 4.8 g/dL (14.0-18.0); Puncture Site RFEM
[2020-01-12 13:49] LABS: ALV-art Gradient 8.625 (0-20)
[2020-01-12 13:50] LABS: Puncture Site RBRACH
--- NOTE | 2020-01-12 14:05 | PDOC.CPN ---
- Subjective Date: 01/12/20 Time: 14:03 Interval history: He had an episode of PEA arrest again. On ABG it was noted his Hgb was down to 4. He had a Hgb of 132 yesterday. 7 this morning. He was coded briefly and given several units of blood since. His BP has since stabilized. He remains intubated. - Review of Systems ROS unobtainable: due to endotracheal tube - Objective Allergies/Adverse Reactions: Allergies Allergy/AdvReac Type Severity Reaction Status Date / Time No Known Allergies Allergy Verified 09/20/19 05:15 Visit Medications: Current Medications Albuterol Sulfate (Proventil Hfa) 2 puff INH [id number] MIKAELA Last Admin: 01/12/20 07:37 Dose: 2 puff Famotidine (Pepcid) 20 mg SLOW IVP 0900 MIKAELA Heparin Sodium (Porcine) (Heparin 1,000 Units/Ml (10 Ml)) 0 units SLOW IVP ASDIR MIKAELA; Protocol Fentanyl Citrate 2,000 mcg/ (Sodium Chloride) 100 mls @ 0 mls/hr IV INF PRN PRN Reason: Pain Last Admin: 01/12/20 02:40 Dose: 100 mls Sodium Chloride (Normal Saline 0.9%) 1,000 mls @ 100 mls/hr IV .Q10H MIKAELA Last Admin: 01/12/20 02:40 Dose: 1,000 mls Heparin Sodium/Dextrose (Heparin 25,000 Units/D5w) 500 mls @ 0 mls/hr IVPB INF MIKAELA; Protocol Last Admin: 01/11/20 16:00 Dose: 500 mls Fentanyl Citrate 2,000 mcg/ (Sodium Chloride) 100 mls @ 0 mls/hr IV INF MIKAELA; Protocol Stop: 02/10/20 16:11 Fentanyl Citrate (Fentanyl Bolus) 250 mls @ 0 mls/hr IVPB PRN PRN PRN Reason: Breakthrough pain/agitation Stop: 02/10/20 16:11 Norepinephrine Bitartrate (Levophed) 250 mls @ 0 mls/hr IVPB INF MIKAELA; Protocol Last Admin: 01/12/20 08:03 Dose: 250 mls Vasopressin 20 unit/Miscellaneous Medication 1 each/ Sodium Chloride 51 mls @ 0 mls/hr IV INF MIKAELA; Protocol Last Admin: 01/12/20 04:51 Dose: 51 mls Azithromycin 500 mg/ Sodium (Chloride) 250 mls @ 250 mls/hr IVPB 2100 MIKAELA Ceftriaxone Sodium 1 gm/ (Sodium Chloride) 100 mls @ 200 mls/hr IVPB 2100 MIKAELA Epinephrine 4 mg/ Dextrose/ (Water) 254 mls @ 0 mls/hr IV INF MIKAELA; Protocol Sodium Bicarbonate 150 meq/ (Dextrose/Water) 1,000 mls @ 125 mls/hr IV INF MIKAELA Lorazepam (Ativan) 2 mg SLOW IVP Q1H PRN PRN Reason: Breakthrough agitation Stop: 02/10/20 16:11 Morphine Sulfate (Morphine) 2 mg SLOW IVP Q1H PRN PRN Reason: Breakthrough Pain/Agitation Stop: 02/10/20 16:11 Discontinue Previous Narcotic Pain Medications And Benzodiazepines 1 each FS .ONE MIKAELA Stop: 02/10/20 16:11 Propofol (Diprivan) 1,000 mg IV INF PRN; Protocol PRN Reason: TO ACHIEVE GOAL RASS Stop: 02/10/20 16:11 Last Admin: 01/12/20 06:42 Dose: 1,000 mg Propofol (Diprivan Bolus) 20 mg IV Q5MIN PRN PRN Reason: BREAKTHROUGH AGITATION Stop: 02/10/20 16:11 Sodium Chloride (Flush - Normal Saline) 10 ml IVF Q12HR MIKAELA Last Admin: 01/12/20 08:03 Dose: 10 ml Sodium Chloride (Flush - Normal Saline) 10 ml IVF PRN PRN PRN Reason: Saline Flush Vital Signs & Weight: Vital Signs Temp Pulse Resp BP 01/12/20 10:57 85 01/12/20 07:47 24 H 01/12/20 07:31 118 H 01/12/20 06:00 25 H 01/12/20 05:15 98.0 F 01/12/20 04:37 98.4 F 01/12/20 04:00 24 H 01/12/20 02:40 121 H 104/41 L Weight 238 lb 8.642 oz - Physical Exam General: other (S/I) HEENT: normocephaly Neck: supple neck Cardiac: regular rate and rhythm Lungs: normal breath sounds Neuro: no lateralizing findings Abdomen: active bowel sounds Extremities: no edema - Labs Result Diagrams: 01/12/20 07:05 01/12/20 07:05 Troponin/CKMB CK-MB (CK-2) 2.4 ng/mL (0-6.6) 01/11/20 09:31 Troponin I 1.833 ng/mL (< 0.028) H* 01/11/20 16:01 - Telemetry Sinus rhythms and dysrhythmias: sinus rhythm - Assessment/Plan Assessment/Plan: 1. Massive PE 2. COVID-19 pnuemonia 3. PEA arrest 4. S/P TPA 5. Severe anemia. likely acute blood loss 6. JEOVANY 7. Hypovelomic shock from bleeding. 8. Distributive shock from PE 9. Type 2 RI, demand ischemia. PLAN: - Will have to hold anticoagulation until hgb stabilizes. - Continue supportive care. - Transfuse PRBC's as needed. - Multiorgan failure - Severely ill and would not be unexpected. - Critical Care Time Critical care time (mins): 30
[2020-01-12] MEDS: EPINEPHrine 4 MG in Dextrose 5% in Water 250 ML IV SCH ×2 (17:21→23:44)
[2020-01-12] MEDS: Azithromycin 500 MG in Sodium Chloride 0.9% 250 ML 250 ML IVPB SCH (20:18)
[2020-01-12] MEDS: cefTRIAXone\\ROCEPHIN 1 GM in Sodium Chloride 0.9% 100 ML IVPB SCH (20:19)
[2020-01-12] MEDS: Sodium Bicarbonate 150 MEQ in Dextrose 5% in Water 850 ML IV SCH (20:19)
[2020-01-13] MEDS: Vasopressin 20 UNIT, Admixture Fee 1 EACH in Sodium Chloride 0.9% 50 ML IV SCH ×4 (00:17→21:08)
[2020-01-13] MEDS: Propofol 1,000 MG/100 ML VIAL IV PRN ×3 (00:33→09:08)
[2020-01-13] MEDS: Norepinephrine 16 MG in Dextrose 5% in Water 234 ML IVPB PRN ×4 (00:52→21:08)
[2020-01-13] MEDS: Sodium Bicarbonate 150 MEQ in Dextrose 5% in Water 850 ML IV SCH ×4 (04:21→15:28)
[2020-01-13] MEDS: EPINEPHrine 4 MG in Dextrose 5% in Water 250 ML IV SCH ×4 (05:17→20:21)
[2020-01-13 05:55] LABS: Anion Gap 45 mmol/L (10-20); BUN (Urea Nitrogen) 23 mg/dL (8.9-20.6); Calc. Creatinine Clearance 25 mL/min (70-130); Calcium 5.5 mg/dL (7.8-10.44); Carbon Dioxide 10 mmol/L (22-29); Chloride 96 mmol/L (98-107); Estimated GFR-MDRD 13; Glucose 470 mg/dL (70-105); Potassium 4.3 mmol/L (3.5-5.1); Sodium 147 mmol/L (136-145)
[2020-01-13 06:02] LABS: Band 26 % (5-11); Hemoglobin 10.3 g/dL (14.0-18.0); Lymphocytes 7 % (21-51); MDiff Complete? YES; Mean Corpuscular HGB CONC 32.5 g/dL (32.0-36.0); Mean Corpuscular Hemoglobin 29.6 pg (27.0-31.0); Metamyelocyte 1 % (0-0); Myelocyte 1 % (0-0); Neutrophil 65 % (42-75); Platelet Count 105 thou/uL (130-400); Platelet Morphology Comment Appears Decreased; RBC Distribution Width 13.7 % (11.5-14.5); Red Blood Cell (RBC) Count 3.49 mill/uL (4.70-6.10)
[2020-01-13] MEDS ORDERED: Dextrose 50% Abboject 50 ML SYRINGE IVP PRN (06:52)
[2020-01-13] MEDS ORDERED: Dextrose 5% in Water 1,000 ML IV PRN (06:52)
[2020-01-13] MEDS ORDERED: HumaLOG 300 UNITS/3 ML VIAL SC SCH (07:15)
[2020-01-13 07:25] LABS: Actual Bicarbonate (HCO3a) 9.1 mEq/L (22-28); Base Excess (BEa) -19.1 mEq/L (-2.0 to +3.0); CO2 Tension 29.5 mmHg (35.0-45.0); Calcium, Ionized (arterial) 0.71 mmol/L (1.12-1.30); Carboxyhemoglobin (COHb) 0.2 gm% (0.0-3.0); Hemoglobin (Hb) 10.1 g/dL (14.0-18.0); O2 Tension (PaO2), arterial 76.7 mmHg (80.0-100.0); Potassium - ABG Lab 3.92 mmol/L (3.70-5.30)
[2020-01-13 07:28] LABS: ALV-art Gradient 314.225 (0-20); Puncture Site LRA; pH, Arterial 7.11 (7.35-7.45)
[2020-01-13] MEDS: Albuterol 200 PUFF (6.7GM INHALER) INH SCH ×3 (08:17→19:13)
[2020-01-13] MEDS: Famotidine/PF 20 mg/2ml Vial SLOW IVP SCH (08:57)
--- NOTE | 2020-01-13 08:57 | RAD ---
PORTABLE CHEST 1 VIEW: Date: 01/13/2020 Time: 0602 hours HISTORY: Respiratory failure. FINDINGS/IMPRESSION: Comparison made with exam from previous day. The focal density/atelectatic change in the right upper lobe has resolved in the interim. POS: IRON
--- NOTE | 2020-01-13 09:18 | PDOC.HOSPP ---
- Subjective Encounter Date: 01/13/20 Encounter Time: 11:00 non-verbal Subjective: Patient with some seizure activity last night, resolved with Diprovan. Still on pressors. - Objective Vital Signs & Weight: Vital Signs (12 hours) Temp Pulse Resp BP Pulse Ox 01/13/20 08:00 97.8 F 24 H 94 L 01/13/20 07:28 108 H 01/13/20 06:00 24 H 01/13/20 04:00 97.7 F 24 H 01/13/20 03:05 108 H 125/60 01/13/20 02:00 24 H 01/13/20 00:00 97.7 F 24 H 01/12/20 23:39 108 H 105/67 01/12/20 22:00 24 H 01/12/20 21:52 109 H 101/53 L Weight Admit Weight 238 lb Weight 261 lb 14.546 oz Most Recent Monitor Data Heart Rate from ECG 109 NIBP 126/52 NIBP BP-Mean 76 Respiration from ECG 24 SpO2 93 I&O: 01/12/20 01/13/20 01/14/20 06:59 06:59 06:59 Intake Total 5068 6442 Output Total 1465 5 0 Balance 3603 6437 0 Result Diagrams: 01/13/20 04:25 01/13/20 04:25 Hospitalist ROS - Review of Systems ROS unobtainable: due to endotracheal tube - Medication Medications: Active Medications Generic Name Dose Route Start Last Admin Trade Name Freq PRN Reason Stop Dose Admin Albuterol Sulfate 2 puff 01/11/20 19:00 01/13/20 08:17 Proventil Hfa INH 2 puff [id number] MIKAELA Administration Famotidine 20 mg 01/13/20 09:00 01/13/20 08:57 Pepcid SLOW IVP 20 mg 0900 MIKAELA Administration Fentanyl Citrate 2,000 mcg/ 100 mls @ 0 mls/hr 01/11/20 12:27 01/12/20 02:40 Sodium Chloride IV 100 mls INF PRN Administration Pain As Directed Sodium Chloride 1,000 mls @ 100 mls/hr 01/11/20 15:30 01/12/20 21:14 Normal Saline 0.9% IV Not Given .Q10H MIKAELA Heparin Sodium/Dextrose 500 mls @ 0 mls/hr 01/11/20 15:45 01/11/20 16:00 Heparin 25,000 Units/D5w IVPB 500 mls INF MIKAELA Administration Protocol Per Protocol Fentanyl Citrate 2,000 mcg/ 100 mls @ 0 mls/hr 01/11/20 16:11 01/12/20 23:44 Sodium Chloride IV 02/10/20 16:11 100 mls INF MIKAELA Administration Protocol Per Protocol Norepinephrine Bitartrate 250 mls @ 0 mls/hr 01/11/20 16:47 01/12/20 21:13 Levophed IVPB 250 mls INF MIKAELA Administration Protocol Titrate Vasopressin 20 unit/ 51 mls @ 0 mls/hr 01/12/20 04:45 01/13/20 00:17 Miscellaneous Medication 1 IV 51 mls each/ Sodium Chloride INF MIKAELA Administration Protocol As Directed Azithromycin 500 mg/ Sodium 250 mls @ 250 mls/hr 01/12/20 21:00 01/12/20 20: 18 Chloride IVPB 250 mls 2100 MIKAELA Administration Ceftriaxone Sodium 1 gm/ 100 mls @ 200 mls/hr 01/12/20 21:00 01/12/20 20:19 Sodium Chloride IVPB 100 mls 2100 MIKAELA Administration Epinephrine 4 mg/ Dextrose/ 254 mls @ 0 mls/hr 01/12/20 11:45 01/13/20 05:17 Water IV 254 mls INF MIKAELA Administration Protocol Titrate Sodium Bicarbonate 150 meq/ 1,000 mls @ 125 mls/hr 01/12/20 12:15 01/13/20 04 :21 Dextrose/Water IV 1,000 mls INF MIKAELA Administration Norepinephrine Bitartrate 16 250 mls @ 0 mls/hr 01/12/20 23:16 01/13/20 00:52 mg/ Dextrose/Water IVPB 250 mls INF PRN Administration TO KEEP SBP > 90 Protocol As Directed Propofol 1,000 mg 01/11/20 16:11 01/13/20 09:08 Diprivan IV 02/10/20 16:11 1,000 mg INF PRN Administration TO ACHIEVE GOAL RASS Protocol Sodium Chloride 10 ml 01/11/20 21:00 01/13/20 08:57 Flush - Normal Saline IVF 10 ml Q12HR MIKAELA Administration - Exam General - other findings: sedated on the vent Eye: PERRL Eye - other findings: edematous sclera Neck - other findings: ET tube in place Heart: RRR, no murmur, no gallops, no rubs Heart - other findings: tachycardic Respiratory: CTAB, no wheezes, no rales, no ronchi Respiratory - other findings: requiring 60% FiO2, sats in low 90s, high 80s Gastrointestinal: soft, non-distended, normal bowel sounds Psychiatric - other findings: sedated on the vent, not responsive Hosp A/P (1) Bilateral pulmonary embolism Code(s): I26.99 - OTHER PULMONARY EMBOLISM WITHOUT ACUTE COR PULMONALE Status : Acute (2) Cardiac arrest with pulseless electrical activity Code(s): I46.9 - CARDIAC ARREST, CAUSE UNSPECIFIED Status: Resolved (3) Acute respiratory failure with hypoxia Code(s): J96.01 - ACUTE RESPIRATORY FAILURE WITH HYPOXIA Status: Acute (4) Metabolic acidosis Code(s): E87.2 - ACIDOSIS Status: Acute (5) COVID-19 Code(s): U07.1 - COVID-19 Status: Acute (6) JEOVANY (acute kidney injury) Code(s): N17.9 - ACUTE KIDNEY FAILURE, UNSPECIFIED Status: Acute (7) Shock Code(s): R57.9 - SHOCK, UNSPECIFIED Status: Acute (8) Obesity Code(s): E66.9 - OBESITY, UNSPECIFIED Status: Chronic (9) Acute blood loss anemia Code(s): D62 - ACUTE POSTHEMORRHAGIC ANEMIA Status: Acute - Plan Patient remains on the vent on pressors. Severely metabolic acidosis and now severe anemia. Transfused 5 units PRBC and Hgb 10 this AM. Some seizure activity last night, propofol started with ativan for breakthrough Creatinine elevating, likely ATN, with loss of UOP, Dr. Steinberg consulted Holding Heparin. No anticoagulants until bleeding stops. Patient is critically ill. Prognosis poor.
[2020-01-13] MEDS ORDERED: methylPREDNISolone Sod Succ 40 MG VIAL IVP SCH (09:30)
--- NOTE | 2020-01-13 09:55 | PRG ---
DATE OF SERVICE: SUBJECTIVE: Mr. Rojas is a 39-year-old black male, who was admitted due to shortness of breath secondary to massive pulmonary embolism. He has been initiated on anticoagulation. He was also noted to be significantly hypotensive and currently was started on pressor support. He also developed acute kidney injury. I did review the urine sediment. It showed numerous pigmented granular casts suggestive of a possible acute tubular necrosis. On attempt to visualize renal vessels to see if there is any waveform there, but this could not be done due to presence of ascites and could not be visualized. The kidneys showed no hydronephrosis and no hypodense area to suggest an infarction per se. The patient's renal function continues to worsen overnight. He remains on the anuric side. PHYSICAL EXAMINATION: VITAL SIGNS: Blood pressure is 126/52, heart rate 109, respiratory rate 24, O2 saturation 93%. GENERAL: The patient is sedated, intubated on ventilator support. SKIN: Adequate turgor. HEENT: Pinkish conjunctivae. Anicteric sclerae. No neck mass. No carotid bruits. No JVD. CHEST: No deformities. LUNGS: Decreased breath sounds. HEART: Normal sinus rhythm. No murmur. No gallops. No rubs. ABDOMEN: Globular, soft. Positive for ascites. EXTREMITIES: No edema. MEDICATIONS: Medications of January 13, 2020, were reviewed. LABORATORY DATA: Laboratories of January 13, 2020: White count 36, hemoglobin 10.3. Sodium 147, potassium 4.3, chloride 96, carbon dioxide 10, BUN 23, creatinine 5.94, calcium is 5.5. ASSESSMENT AND PLAN: 1. Acute kidney injury - secondary to a most likely ischemic acute tubular necrosis. The patient is noted to be nonoliguric. Due to the significant metabolic acidosis, hypocalcemia, and progressive azotemia, we will initiate hemodialysis. Surgical consult has been done for placement of femoral dialysis catheter. 2. Pneumonia/COVID-19 positive - currently on IV antibiotics. The patient is on isolation. Continue supportive care. 3. Massive pulmonary embolism. Currently, on anticoagulation. 4. Overall prognosis remains guarded. Job ID: [id number]
--- NOTE | 2020-01-13 10:10 | PRG ---
DATE OF SERVICE: 01/13/2020 SUBJECTIVE: Fito Rojas is a 39-year-old gentleman, who is intubated in the vent, sedated. He has severe metabolic acidosis. He will be dialyzed today. OBJECTIVE: VITAL SIGNS: Temperature 98, pulse 94, blood pressure 126/52, respiratory rate 18. Yesterday, he had an episode of hypotension, CPR was initiated briefly, pulseless arrest. He had epinephrine. He was bagged. It is felt that he probably might have a retroperitoneal bleed from his tPA. It is unclear since he has had central line placed in the groin. This morning, though his saturations are 93%, blood pressure 126/62, and temperature 97. CHEST: Decreased breath sounds. No wheezing. No rhonchi. CARDIAC: Normal S1, S2. No gallops. ABDOMEN: No masses. ASSESSMENT AND PLAN: Renal failure, pulmonary embolism, status post cardiac arrest, status post tPA, possibly hemorrhage retroperitoneally, shock, acidosis. Continue vasopressin. I have restarted low-dose steroids on him. His overall prognosis is guarded. We will discuss with family. We are going to continue antibiotics. We are going to continue supportive care. We will start nutrition in the next day or 2, we can CT his abdomen, chest, and pelvis. One-half hour of critical care time. Job ID: [id number]
[2020-01-13] MEDS ORDERED: Heparin 10,000 UNITS/ 10 ML VIAL ONE (11:58)
[2020-01-13 12:51] LABS: SARS-CoV-2 MS2 Positive; SARS-CoV-2 N Gene Positive; SARS-CoV-2 S Gene Positive; SARS-CoV-2 orf1ab Positive
[2020-01-13 12:53] VITALS: BMI 35.5
[2020-01-13 14:30] LABS: HBSAB Concentration Less than 8.00 mIU/mL; HBSAg Index 0.27 S/CO (0-0.99); Hep B Surf AB Non-Reactive (NonReactive); Hep B Surf Ag Non-Reactive S/CO (NonReactive)
--- NOTE | 2020-01-13 14:42 | PDOC.CPN ---
- Subjective Date: 01/13/20 Time: 14:42 Interval history: Remains sedated intubated. - Review of Systems ROS unobtainable: due to endotracheal tube - Objective Allergies/Adverse Reactions: Allergies Allergy/AdvReac Type Severity Reaction Status Date / Time No Known Allergies Allergy Verified 09/20/19 05:15 Visit Medications: Current Medications Albuterol Sulfate (Proventil Hfa) 2 puff INH [id number] MIKAELA Last Admin: 01/13/20 08:17 Dose: 2 puff Dextrose/Water (Dextrose 50%) 25 gm IVP PRN PRN PRN Reason: HYPOGLYCEMIA PROTOCOL Famotidine (Pepcid) 20 mg SLOW IVP 0900 MIKAELA Last Admin: 01/13/20 08:57 Dose: 20 mg Glucagon (Glucagon) 1 mg IM PRN PRN PRN Reason: HYPOGLYCEMIA PROTOCOL Fentanyl Citrate 2,000 mcg/ (Sodium Chloride) 100 mls @ 0 mls/hr IV INF MIKAELA; Protocol Stop: 02/10/20 16:11 Last Admin: 01/12/20 23:44 Dose: 100 mls Fentanyl Citrate (Fentanyl Bolus) 250 mls @ 0 mls/hr IVPB PRN PRN PRN Reason: Breakthrough pain/agitation Stop: 02/10/20 16:11 Vasopressin 20 unit/Miscellaneous Medication 1 each/ Sodium Chloride 51 mls @ 0 mls/hr IV INF MIKAELA; Protocol Last Admin: 01/13/20 09:22 Dose: 51 mls Azithromycin 500 mg/ Sodium (Chloride) 250 mls @ 250 mls/hr IVPB 2100 MIKAELA Last Admin: 01/12/20 20:18 Dose: 250 mls Ceftriaxone Sodium 1 gm/ (Sodium Chloride) 100 mls @ 200 mls/hr IVPB 2100 MIKAELA Last Admin: 01/12/20 20:19 Dose: 100 mls Epinephrine 4 mg/ Dextrose/ (Water) 254 mls @ 0 mls/hr IV INF MIKAELA; Protocol Last Admin: 01/13/20 09:22 Dose: 254 mls Sodium Bicarbonate 150 meq/ (Dextrose/Water) 1,000 mls @ 125 mls/hr IV INF MIKAELA Last Admin: 01/13/20 09:20 Dose: 1,000 mls Norepinephrine Bitartrate 16 (mg/ Dextrose/Water) 250 mls @ 0 mls/hr IVPB INF PRN; Protocol PRN Reason: TO KEEP SBP > 90 Last Admin: 01/13/20 09:23 Dose: 250 mls Dextrose/Water (D5w) 1,000 mls @ 0 mls/hr IV INF PRN PRN Reason: HYPOGLYCEMIA PROTOCOL Lorazepam (Ativan) 2 mg SLOW IVP Q1H PRN PRN Reason: Breakthrough agitation Stop: 02/10/20 16:11 Morphine Sulfate (Morphine) 2 mg SLOW IVP Q1H PRN PRN Reason: Breakthrough Pain/Agitation Stop: 02/10/20 16:11 Discontinue Previous Narcotic Pain Medications And Benzodiazepines 1 each FS .ONE MIKAELA Stop: 02/10/20 16:11 Propofol (Diprivan) 1,000 mg IV INF PRN; Protocol PRN Reason: TO ACHIEVE GOAL RASS Stop: 02/10/20 16:11 Last Admin: 01/13/20 09:08 Dose: 1,000 mg Propofol (Diprivan Bolus) 20 mg IV Q5MIN PRN PRN Reason: BREAKTHROUGH AGITATION Stop: 02/10/20 16:11 Sodium Chloride (Flush - Normal Saline) 10 ml IVF Q12HR MIKAELA Last Admin: 01/13/20 08:57 Dose: 10 ml Sodium Chloride (Flush - Normal Saline) 10 ml IVF PRN PRN PRN Reason: Saline Flush Vital Signs & Weight: Vital Signs Temp Pulse Resp BP Pulse Ox 01/13/20 12:00 96.9 F L 24 H 01/13/20 10:21 110 H 01/13/20 10:00 24 H 01/13/20 08:00 97.8 F 24 H 94 L 01/13/20 07:28 108 H 01/13/20 06:00 24 H 01/13/20 04:00 97.7 F 24 H 01/13/20 03:05 108 H 125/60 Admit Weight 238 lb 8.64 oz Weight 261 lb 14.546 oz - Physical Exam General: other (S/I) HEENT: mucus membranes moist Neck: supple neck Cardiac: regular rate and rhythm, tachycardia Neuro: no lateralizing findings Abdomen: active bowel sounds Extremities: no edema - Labs Result Diagrams: 01/13/20 04:25 01/13/20 04:25 Troponin/CKMB CK-MB (CK-2) 2.4 ng/mL (0-6.6) 01/11/20 09:31 Troponin I 1.833 ng/mL (< 0.028) H* 01/11/20 16:01 - Telemetry Sinus rhythms and dysrhythmias: sinus tachycardia - Assessment/Plan Assessment/Plan: 1. Massive PE 2. COVID-19 pneumonia 3. PEA arrest 4. S/P TPA 5. Severe anemia. likely acute blood loss 6. JEOVANY 7. Hypovelomic shock from bleeding. 8. Distributive shock from PE 9. Type 2 [place], demand ischemia. PLAN: - Continue supportive care. - Transfuse PRBC's as needed. - Multiorgan failure - Severely ill and would not be unexpected. - Will follow from a distance over the weekend.
[2020-01-13] MEDS: HumaLOG 300 UNITS/3 ML VIAL SC PRN ×4 (15:27→23:45)
[2020-01-13 16:15] LABS: Hemoglobin 10.1 g/dL (14.0-18.0); Platelet Count 92 thou/uL (130-400)
--- NOTE | 2020-01-13 18:46 | OP ---
DATE OF PROCEDURE: 01/13/2020 PREOPERATIVE DIAGNOSIS: Acute renal failure. POSTOPERATIVE DIAGNOSIS: Acute renal failure. PROCEDURE PERFORMED: Placement of triple-lumen left femoral vein Trialysis catheter. INDICATIONS FOR PROCEDURE: A 39-year-old, morbidly obese man, admitted, on mechanical ventilator support now with acute renal failure. I was asked to place a temporary dialysis catheter for hemodialysis. The patient already has a right femoral vein catheter. Apparently, there was an attempted left groin puncture site, which resulted in some hemorrhage. There was no evidence of expanding hematoma in the left groin. We decided to proceed with placement of the temporary dialysis catheter in this area as the right groin was already preoccupied with an essential central venous access. DESCRIPTION OF PROCEDURE: Informed consent was obtained from the patient's power of estate attorney. The patient was placed in supine position. Left groin was sterilely prepped and draped in usual fashion. The left femoral artery was palpated and the skin medial to this was anesthetized with 1% lidocaine. The left femoral vein was cannulated with an 18-gauge introducer needle at first attempt. Dark venous blood was returned. The guidewire was passed through the needle and advanced into the left femoral vein without resistance. The needle was withdrawn over the guidewire. Stab incision was made adjacent to the guidewire using an 11 scalpel. A dilator was passed over the guidewire, dilating the subcutaneous tissues. Dilator was removed and a triple-lumen Trialysis catheter advanced over the guidewire and placed in the left femoral vein without resistance down to the hub. The guidewire was removed. Dark venous blood was vigorously aspirated from all three ports, which were flushed with saline followed by heparin. The catheter was secured to the left groin using 3-0 nylon suture at two points. Sterile dressings were applied. The patient tolerated the procedure without any apparent complication and remains hemodynamically stable following completion of procedure. Job ID: [id number]
[2020-01-13] MEDS: Azithromycin 500 MG in Sodium Chloride 0.9% 250 ML 250 ML IVPB SCH (20:21)
[2020-01-13] MEDS: cefTRIAXone\\ROCEPHIN 1 GM in Sodium Chloride 0.9% 100 ML IVPB SCH (20:21)
[2020-01-13] MEDS: Sodium Chloride 0.9% 1,000 ML IV SCH (21:30)
[2020-01-14] MEDS: Albuterol 200 PUFF (6.7GM INHALER) INH SCH ×4 (00:08→19:03)
[2020-01-14] MEDS ORDERED: HumaLOG 300 UNITS/3 ML VIAL SC SCH (01:45)
[2020-01-14] MEDS: Norepinephrine 32 MG in Dextrose 5% in Water 218 ML IVPB PRN ×2 (02:45→15:53)
[2020-01-14] MEDS: EPINEPHrine 4 MG in Dextrose 5% in Water 250 ML IV SCH ×5 (02:45→22:06)
[2020-01-14 05:00] LABS: Anion Gap 29 mmol/L (10-20); BUN (Urea Nitrogen) 29 mg/dL (8.9-20.6); Calc. Creatinine Clearance 22 mL/min (70-130); Carbon Dioxide 21 mmol/L (22-29); Chloride 89 mmol/L (98-107); Estimated GFR-MDRD 10; Glucose 490 mg/dL (70-105); Potassium 3.6 mmol/L (3.5-5.1); Sodium 135 mmol/L (136-145)
[2020-01-14] MEDS: HumaLOG 300 UNITS/3 ML VIAL SC PRN (05:00)
[2020-01-14 05:02] LABS: Calcium 4.8 mg/dL (7.8-10.44)
[2020-01-14] MEDS: Vasopressin 20 UNIT, Admixture Fee 1 EACH in Sodium Chloride 0.9% 50 ML IV SCH ×2 (05:03→12:59)
[2020-01-14] MEDS: Insulin Regular 100 units/100 ml in NS IVPB SCH ×5 (05:44→22:06)
[2020-01-14 05:55] LABS: Band 24 % (5-11); Hemoglobin 8.6 g/dL (14.0-18.0); Lymphocytes 5 % (21-51); MDiff Complete? YES; Mean Corpuscular HGB CONC 34.9 g/dL (32.0-36.0); Mean Corpuscular Hemoglobin 29.8 pg (27.0-31.0); Mean Corpuscular Volume 85.4 fL (78.0-98.0); Mean Platelet Volume 9.9 fL (7.4-10.4); Metamyelocyte 2 % (0-0); Monocytes 1 % (0-10); Neutrophil 68 % (42-75); Platelet Count 91 thou/uL (130-400); Platelet Morphology Comment Appears Decreased; RBC Distribution Width 13.5 % (11.5-14.5); Red Blood Cell (RBC) Count 2.87 mill/uL (4.70-6.10)
[2020-01-14] MEDS: Sodium Bicarbonate 150 MEQ in Dextrose 5% in Water 850 ML IV SCH ×2 (07:16→15:53)
[2020-01-14 07:41] LABS: Actual Bicarbonate (HCO3a) 17.7 mEq/L (22-28); Base Excess (BEa) -4.5 mEq/L (-2.0 to +3.0); Calcium, Ionized (arterial) 0.57 mmol/L (1.12-1.30); Carboxyhemoglobin (COHb) 0.1 gm% (0.0-3.0); Hemoglobin (Hb) 8.6 g/dL (14.0-18.0); O2 Tension (PaO2), arterial 110.9 mmHg (80.0-100.0); Potassium - ABG Lab 3.22 mmol/L (3.70-5.30)
[2020-01-14 08:01] LABS: CO2 Tension 23.4 mmHg (35.0-45.0)
[2020-01-14 08:02] LABS: Puncture Site RBRACH
--- NOTE | 2020-01-14 08:36 | RAD ---
SINGLE VIEW OF CHEST: Date: 01/14/2020 COMPARISON: 01/13/2020. HISTORY: Ventilated patient with respiratory failure. FINDINGS: Single view of the chest shows normal sized cardiomediastinal silhouette. The NG tube and endotrachea l tube are unchanged in position. There is no evidence of consolidation, mass, or pleural effusion. IMPRESSION: Stable exam. POS: EAA
[2020-01-14] MEDS: Famotidine/PF 20 mg/2ml Vial SLOW IVP SCH (09:00)
--- NOTE | 2020-01-14 09:20 | PDOC.HOSPP ---
- Subjective Encounter Date: 01/14/20 Encounter Time: 09:30 non-verbal Subjective: Patient on maximum pressors. Off sedation and no response. - Objective Vital Signs & Weight: Vital Signs (12 hours) Temp Pulse Resp BP Pulse Ox 01/14/20 08:06 130 H 01/14/20 08:00 18 01/14/20 07:00 100 01/14/20 06:00 24 H 01/14/20 04:00 24 H 01/14/20 03:20 134 H 105/45 L 01/14/20 02:00 24 H 01/14/20 00:08 128 H 113/58 L 01/14/20 00:00 98.6 F 24 H 01/13/20 22:07 127 H 103/60 01/13/20 22:00 24 H Weight Admit Weight 238 lb 8.64 oz Weight 261 lb 14.546 oz Most Recent Monitor Data Heart Rate from ECG 131 NIBP 88/47 NIBP BP-Mean 60 Respiration from ECG 24 SpO2 100 I&O: 01/13/20 01/14/20 01/15/20 06:59 06:59 06:59 Intake Total 6442 5846.3 Output Total 5 5 Balance 6437 5841.3 Result Diagrams: 01/14/20 04:20 01/14/20 04:20 Additional Labs: Accuchecks 01/13/20 01/13/20 01/13/20 23:52 21:08 18:22 POC Glucose 503 H 492 H 469 H 01/13/20 14:21 POC Glucose 454 H Hospitalist ROS - Review of Systems ROS unobtainable: due to endotracheal tube - Medication Medications: Active Medications Generic Name Dose Route Start Last Admin Trade Name Freq PRN Reason Stop Dose Admin Albuterol Sulfate 2 puff 01/11/20 19:00 01/14/20 07:21 Proventil Hfa INH 2 puff [id number] MIKAELA Administration Famotidine 20 mg 01/13/20 09:00 01/14/20 09:00 Pepcid SLOW IVP 20 mg 0900 MIKAELA Administration Fentanyl Citrate 2,000 mcg/ 100 mls @ 0 mls/hr 01/11/20 16:11 01/12/20 23:44 Sodium Chloride IV 02/10/20 16:11 100 mls INF MIKAELA Administration Protocol Per Protocol Vasopressin 20 unit/ 51 mls @ 0 mls/hr 01/12/20 04:45 01/14/20 05:03 Miscellaneous Medication 1 IV 51 mls each/ Sodium Chloride INF MIKAELA Administration Protocol As Directed Azithromycin 500 mg/ Sodium 250 mls @ 250 mls/hr 01/12/20 21:00 01/13/20 20: 21 Chloride IVPB 250 mls 2100 MIKAELA Administration Ceftriaxone Sodium 1 gm/ 100 mls @ 200 mls/hr 01/12/20 21:00 01/13/20 20:21 Sodium Chloride IVPB 100 mls 2100 MIKAELA Administration Epinephrine 4 mg/ Dextrose/ 254 mls @ 0 mls/hr 01/12/20 11:45 01/14/20 09:00 Water IV 254 mls INF MIKAELA Administration Protocol Titrate Sodium Bicarbonate 150 meq/ 1,000 mls @ 125 mls/hr 01/12/20 12:15 01/14/20 07 :16 Dextrose/Water IV 1,000 mls INF MIKAELA Administration Norepinephrine Bitartrate 32 250 mls @ 0 mls/hr 01/13/20 21:53 01/14/20 02:45 mg/ Dextrose/Water IVPB 250 mls INF PRN Administration TO KEEP SBP > 90 Protocol As Directed Insulin Human Regular 100 101 mls @ 0 mls/hr 01/14/20 05:15 01/14/20 05:44 units/ Sodium Chloride IVPB 101 mls INF MIKAELA Administration Titrate Insulin Human Lispro 0 units 01/13/20 15:05 01/14/20 05:00 Humalog SC 10 unit .MODERATE SLIDING SC PRN Administration MODERATE SLIDING SCALE Protocol Propofol 1,000 mg 01/11/20 16:11 01/13/20 09:08 Diprivan IV 02/10/20 16:11 1,000 mg INF PRN Administration TO ACHIEVE GOAL RASS Protocol Sodium Chloride 10 ml 01/11/20 21:00 01/14/20 09:01 Flush - Normal Saline IVF 10 ml Q12HR MIKAELA Administration - Exam General Appearance: ill appearing General - other findings: non-responsive on the vent Eye - other findings: pupils non-reactive, negative corneal reflex Heart: RRR, no murmur, no gallops, no rubs Respiratory: CTAB, no wheezes, no rales, no ronchi Gastrointestinal: soft, distended, diminished bowl sounds Neurological - other findings: no response, no reflexes Hosp A/P (1) Bilateral pulmonary embolism Code(s): I26.99 - OTHER PULMONARY EMBOLISM WITHOUT ACUTE COR PULMONALE Status : Acute (2) Cardiac arrest with pulseless electrical activity Code(s): I46.9 - CARDIAC ARREST, CAUSE UNSPECIFIED Status: Resolved (3) Acute respiratory failure with hypoxia Code(s): J96.01 - ACUTE RESPIRATORY FAILURE WITH HYPOXIA Status: Acute (4) Metabolic acidosis Code(s): E87.2 - ACIDOSIS Status: Acute (5) COVID-19 Code(s): U07.1 - COVID-19 Status: Acute (6) JEOVANY (acute kidney injury) Code(s): N17.9 - ACUTE KIDNEY FAILURE, UNSPECIFIED Status: Acute (7) Shock Code(s): R57.9 - SHOCK, UNSPECIFIED Status: Acute (8) Obesity Code(s): E66.9 - OBESITY, UNSPECIFIED Status: Chronic (9) Acute blood loss anemia Code(s): D62 - ACUTE POSTHEMORRHAGIC ANEMIA Status: Acute - Plan Patient remains on the vent on pressors. Severely metabolic acidosis and now severe anemia. Transfused 5 units PRBC and Hgb 10 now back down to 8.6. Patient completely unresponsive off sedation since last night, no brainstem reflexes at this time Creatinine elevating, likely ATN, with loss of UOP, Dr. Steinberg consulted, trialysis cath placed Holding Heparin. No anticoagulants until bleeding stops. Patient is critically ill. Likely severe anoxic brain injury or brain . Dr. Galvez has informed the family. They are discussing.
[2020-01-14] MEDS: Albumin 25% 25 GM/100 ML BOT IVPB SCH ×3 (10:46→22:09)
--- NOTE | 2020-01-14 10:47 | PRG ---
DATE OF SERVICE: 01/14/2020 SUBJECTIVE: Mr. Rojas is a 39-year-old black male, who was admitted due to a massive pulmonary embolism. He went to cardiac arrest, but was subsequently resuscitated. He was also found to be COVID-19 positive. In addition, he is currently on several pressor supports. He also developed acute kidney injury secondary to presumed ischemic ATN. He underwent hemodialysis for 1 hour yesterday. The dialysis was marred by a low blood pressure. He was given back 400 mL of normal saline. This morning, the patient is less responsive. His pupils are dilated, and he is not responding to any stimuli. OBJECTIVE: VITAL SIGNS: Blood pressure is 80/43, heart rate is 124, respiratory rate 17, O2 saturation 97%. GENERAL: The patient is unresponsive, intubated, on ventilator support. SKIN: Adequate turgor. HEENT: He has pale conjunctivae. Anicteric sclerae. No neck mass. No carotid bruits. No JVD. CHEST: No deformities. LUNGS: Decreased breath sounds. HEART: Normal sinus rhythm. No murmur. No gallops. No rubs. ABDOMEN: Globular, soft, nontender. No masses. Positive for ascites. EXTREMITIES: No edema. MEDICATIONS: Medications of January 14, 2020, were reviewed. LABORATORY DATA: Laboratories of January 14, 2020; white count 25, hemoglobin 8.6. Sodium 135, potassium 3.6, chloride 89, carbon dioxide 29, BUN 29, creatinine 7.44, and calcium is 4.8. ASSESSMENT AND PLAN: 1. Hypocalcemia. We will change the calcium bath of the dialysis to 3.0 if it is available. 2. Acute kidney injury secondary to ischemic acute tubular necrosis. We will consider dialyzing this patient again. Minimal or no fluid removal will be done. In addition, I will start the patient on albumin infusion 25 g IV q.6. The patient will be primed also with 250 mL of normal saline. 3. Status post pulmonary embolism-massive. Continue supportive care status post thrombolytic therapy. 4. Unresponsiveness/dilated pupil-the patient may have an acute insult to his brain during these episodes of hemodynamic instability and cardiac arrest. His overall prognosis remains guarded. Job ID: [id number] [facility]
--- NOTE | 2020-01-14 11:15 | PRG ---
DATE OF SERVICE: 01/14/2020 SUBJECTIVE: Fito Rojas, this morning, still on Levophed, vasopressin, and epinephrine drip with a blood pressure 80 systolic, respirations set at 18. I dropped his rate to 10. He is not assist to the vent. He had long pauses. Sats 98%. His urine output is zero. His temperature has been 98. OBJECTIVE: HEENT: His pupils are fixed and dilated. CHEST: No wheezing, no crackles. CARDIAC: Normal S1, S2. No gallops. ABDOMEN: No masses. LABORATORY STUDIES: White count 25,000, H and H 8 and 24, platelet count is 91,000, left shift. His pO2 is 110, pCO2 of 23, pH 7.50. His creatinine is 7, BUN is 29, his bicarb is 21, glucose 503. ASSESSMENT: 1. Status post massive pulmonary embolism, cardiopulmonary arrest, received tPA. 2. Anoxic brain injury, may be brain . 3. Renal failure. 4. Coronavirus positive pneumonia. PLAN: I discussed the finding with his . The patient is probably brain . She is to talk with his sisters regarding ongoing care. At this stage, we need to consider making a DNR. In the next day or two, we can get a CT of his head. We will hold off dialysis at this stage. Discussed with Nephrology. Prognosis is grave. Job ID: [id number]
[2020-01-14] MEDS: Azithromycin 500 MG in Sodium Chloride 0.9% 250 ML 250 ML IVPB SCH (20:59)
[2020-01-14] MEDS: cefTRIAXone\\ROCEPHIN 1 GM in Sodium Chloride 0.9% 100 ML IVPB SCH (21:00)
[2020-01-15] MEDS: Albuterol 200 PUFF (6.7GM INHALER) INH SCH ×2 (00:12→08:13)
[2020-01-15] MEDS: Sodium Bicarbonate 150 MEQ in Dextrose 5% in Water 850 ML IV SCH (00:14)
[2020-01-15] MEDS: Insulin Regular 100 units/100 ml in NS IVPB SCH ×3 (00:14→05:39)
[2020-01-15] MEDS: EPINEPHrine 4 MG in Dextrose 5% in Water 250 ML IV SCH ×2 (01:15→07:12)
[2020-01-15] MEDS: Norepinephrine 32 MG in Dextrose 5% in Water 218 ML IVPB PRN (01:16)
[2020-01-15] MEDS: Vasopressin 20 UNIT, Admixture Fee 1 EACH in Sodium Chloride 0.9% 50 ML IV SCH (01:58)
[2020-01-15 02:27] VITALS: BP 107/62
[2020-01-15 04:47] LABS: Anion Gap 31 mmol/L (10-20); BUN (Urea Nitrogen) 37 mg/dL (8.9-20.6); Calc. Creatinine Clearance 19 mL/min (70-130); Carbon Dioxide 24 mmol/L (22-29); Chloride 85 mmol/L (98-107); Estimated GFR-MDRD 8; Glucose 197 mg/dL (70-105); Potassium 5.2 mmol/L (3.5-5.1); Sodium 135 mmol/L (136-145)
[2020-01-15 04:50] LABS: Calcium 4.1 mg/dL (7.8-10.44)
[2020-01-15] MEDS: Albumin 25% 25 GM/100 ML BOT IVPB SCH (05:13)
[2020-01-15] MEDS ORDERED: Calcium Chloride 1 GM/10 ML Abboject SYRINGE IVP SCH (05:15)
[2020-01-15 06:14] LABS: Band 29 % (5-11); Hemoglobin 7.3 g/dL (14.0-18.0); Lymphocytes 5 % (21-51); MDiff Complete? YES; Mean Corpuscular HGB CONC 33.7 g/dL (32.0-36.0); Mean Corpuscular Hemoglobin 29.4 pg (27.0-31.0); Mean Corpuscular Volume 87.3 fL (78.0-98.0); Mean Platelet Volume 10.8 fL (7.4-10.4); Neutrophil 66 % (42-75); Nucleated RBC 16 % (0); Platelet Count 64 thou/uL (130-400); Platelet Morphology Comment Appears Decreased; RBC Distribution Width 13.4 % (11.5-14.5); Red Blood Cell (RBC) Count 2.47 mill/uL (4.70-6.10); White Blood Cell (WBC) Count 20.1 thou/uL (4.8-10.8)
[2020-01-15 08:51] VITALS: TEMP 97.8
--- NOTE | 2020-01-15 10:29 | PRG ---
DATE OF SERVICE: 01/15/2020 SUBJECTIVE: Fito Rojas is a 39-year-old gentleman, who was admitted on 01/11/2020. Day #4 in the ICU following massive pulmonary emboli complicated by shock and multiorgan failure. Additionally, he was found to have coronavirus positive x2 swab. He went into acute renal failure and persistent shock and severe metabolic acidosis requiring 3 pressors include epinephrine, vasopressin, and Levophed. In spite of this, his blood pressure was barely over 90. As of yesterday, his pupils were fixed and dilated. I spoke to his family at length, his ex-, today they came into the ICU, several members including a brother and a sister. I told them he is essentially brain because of his three pressors on board. Pupils were fixed and dilated. I am probably concerned that he might have had a retroperitoneal bleed and history of positive coronavirus. We were unable to do any definitive diagnosis and studies like a CT head, abdomen, and chest to rule out any sites of bleeding. They agreed to make him a DNR. We disconnected all his pressors and put on CPAP. Within a very short time, he had an asystolic event. At 9:12 in the morning on 01/15/2020, he was pronounced . Family is aware that the body being released to the home . FINAL DIAGNOSES: 1. Remains massive pulmonary emboli, complicated by the coronavirus. 2. Acute renal failure, ATN. 3. Right lower lung atelectasis. 4. Severe metabolic acidosis. 5. Probably anoxic injury from the shock. 6. Status post tPA with presumed intraperitoneal bleed . Job ID: [id number]
[2020-01-15 20:05] LABS: Cardiolipin IgA Ab 1.6 APL-U/mL (<14 Negative); Cardiolipin IgG Ab 1.2 GPL-U/mL (<10 Negative); Cardiolipin IgM Ab Less than 0.8 MPL-U/mL (<10 Negative); EliA APS New Method **** NEW METHOD ****
[2020-01-16 14:06] LABS: HEX PHOS LA Tube 1 61.4 SEC; HEX PHOS LA Tube 2 54.3 SEC; Hexagonal Phospholipid Neut 7.1 SEC (0-8.0); Protein C Activity 85 % (78-152)
--- NOTE | 2020-01-16 14:33 | DIS ---
DATE OF ADMISSION: 01/11/2020 DATE OF DISCHARGE: 01/15/2020 PRIMARY CARE PROVIDER: Lewis Stuart. The patient was admitted 01/11/2020 and 01/15/2020 at approximately 9 a.m. FINAL DIAGNOSES: Massive pulmonary emboli, complicated by coronavirus; acute tubular necrosis/acute renal failure; severe metabolic acidosis; anoxic brain injury. HOSPITAL COURSE: The patient was admitted through the emergency room to the Hospitalist Service. History of a previous pulmonary embolus, not been on anticoagulation, presented with shortness of breath, intubated in the emergency room, had bilateral pulmonary emboli with right heart strain. He was treated in the past. He was treated with anticoagulation and discharged on Xarelto in the past. He presented this morning of admission complaining of shortness of breath, sharp pain, which did show bilateral pulmonary emboli with right ventricular strain. The patient had a seizure while in the CT scanner. CT of the head was negative. He was given half dose of tPA. He decompensated rapidly into pulseless electrical activity. CPR was instituted. He was intubated, central line put in. He was given tenecteplase. He had return of spontaneous circulation, admitted ICU. Dr. Galvez was consulted. On 01/11, he was on multiple vasopressors, had received 4 units of packed cells. On 01/13/2020, Dr. Bhupinder Baker put in a triple lumen left femoral vein Trialysis catheter. The patient was seen in consultation by Dr. Joe Villa, Cardiology; Dr. Sang Steinberg, Nephrology. On 01/13, still on multiple pressors with a blood pressure of 80 systolic on the ventilator did not assist. Pupils were fixed and dilated. His situation was discussed with the spouse. On 01/14, the situation was the same. Situation was discussed with the spouse and spouse's mother, agreed to removing life support. Ventilator was removed. The patient went asystolic, shortly thereafter was pronounced . Job ID: [id number]
== END 2020-01-15 09:12 | disposition expired | DRG 208 ==
LOC: ERS 09:13 → CCU 12:25
PROVIDERS: ADMIT Emergency Medicine; ATTEND Emergency Medicine
PROC: 5A1945Z Respiratory Ventilation, 24-96 Consecutive Hours (ICD-10-PCS; principal; 2020-01-11)
PROC: 0BH17EZ Insertion of Endotracheal Airway into Trachea, Via Natural or Artificial Opening (ICD-10-PCS; 2020-01-11)
PROC: 06HY33Z Insertion of Infusion Device into Lower Vein, Percutaneous Approach (ICD-10-PCS; 2020-01-11)
PROC: 3E043XZ Introduction of Vasopressor into Central Vein, Percutaneous Approach (ICD-10-PCS; 2020-01-11)
PROC: 3E04317 Introduction of Other Thrombolytic into Central Vein, Percutaneous Approach (ICD-10-PCS; 2020-01-11)
PROC: 06HY33Z Insertion of Infusion Device into Lower Vein, Percutaneous Approach (ICD-10-PCS; 2020-01-11)
PROC: 5A12012 Performance of Cardiac Output, Single, Manual (ICD-10-PCS; 2020-01-11)
PROC: 30233N1 Transfusion of Nonautologous Red Blood Cells into Peripheral Vein, Percutaneous Approach (ICD-10-PCS; 2020-01-12)
PROC: 5A1D70Z Performance of Urinary Filtration, Intermittent, Less than 6 Hours Per Day (ICD-10-PCS; 2020-01-13)
PROC: 06HY33Z Insertion of Infusion Device into Lower Vein, Percutaneous Approach (ICD-10-PCS; 2020-01-13)
DX: I26.99 Other pulmonary embolism without acute cor pulmonale (principal); U07.1 COVID-19; N17.0 Acute kidney failure with tubular necrosis; J96.01 Acute respiratory failure with hypoxia; I21.A1 Myocardial infarction type 2; J12.89 Other viral pneumonia; E87.2 Acidosis; G93.1 Anoxic brain damage, not elsewhere classified; D62 Acute posthemorrhagic anemia; J98.11 Atelectasis; Z66 Do not resuscitate; F17.220 Nicotine dependence, chewing tobacco, uncomplicated; I46.8 Cardiac arrest due to other underlying condition; R57.8 Other shock; R57.1 Hypovolemic shock; E66.01 Morbid (severe) obesity due to excess calories; E83.51 Hypocalcemia; Z86.711 Personal history of pulmonary embolism; Z68.35 Body mass index [BMI] 35.0-35.9, adult; Z86.718 Personal history of other venous thrombosis and embolism; Z78.1 Physical restraint status
CPT/HCPCS: 31500; 36415; 36416; 36430; 36556; 70450; 71045; 71275; 76770; 80048; 80053; 81001; 81240; 81241; 82553; 82805; 83090; 83690; 83735; 83880; 84484; 85025; 85240; 85300; 85303; 85305; 85307; 85379; 85598; 85610; 85730; 86147; 86706; 86850; 86900; 86901; 87340; 87635; 90935; 92950; 93005; 93975; 94002; 94003; 96365; 96366; 96372; 96375; 96376; 99292; G0257; J0171; J0456; J0696; J1100; J1642; J1644; J1650; J1720; J1815; J2060; J2704; J2920; J3010; J3101; J3490; J7050; J7070; P9016; P9045; P9047; Q9967; S0028; U0002; U0003